=== PATIENT | female | born 1945 | race Caucasian/White ===

== ENCOUNTER → 2023-12-31 12:56 | Outpatient (REF) | payer OTHER, SELFPAY | LOC: RAD 12:56 | PROVIDERS: ATTENDING PHYSICIAN Family Medicine | DX: R41.3 Other amnesia (principal) | CPT/HCPCS: 70450 ==

== ENCOUNTER 2024-10-28 17:19 | Emergency (ER) | payer OTHER, SELFPAY ==
[2024-10-28 17:27] VITALS: BP 133/53
[2024-10-28 18:01] LABS: % Basophils 0.3 % (0-2); % Immature Granulocytes 0.5 % (0-0.5); % Lymphocytes 16.2 % (20.5-51.1); % Monocytes 12.4 % (1.7-9.3); % Neutrophils 70.6 % (42.2-75.2); Absolute Lymphocytes 0.6 10^3/uL (1.2-3.4); Absolute Monocytes 0.5 10^3/uL (0.1-0.6); Absolute Neutrophils 2.8 10^3/uL (1.4-6.5); Hematocrit 36.2 % (37.0-47.0); Hemoglobin 11.9 g/dL (12.0-16.0); Mean Corp Hgb Conc. 32.9 g/dL (33.0-37.0); Mean Corpuscular Hgb 28.2 pg (27.0-31.0); Mean Corpuscular Volume 85.8 fL (81.0-99.0); Mean Platelet Volume 9.1 fL (7.4-10.4); Nucleated Red Blood Cells % 0 %; Platelet Count 194 10^3/uL (130-400); Red Blood Cell Count 4.22 10^6/uL (4.20-5.40); Red Cell Dist. Width 12.3 % (11.5-14.5)
[2024-10-28 18:19] LABS: ALT (SGPT) 26 U/L (0-35); AST (SGOT) 37 U/L (14-36); Albumin 4.6 g/dl (3.5-5.0); Alkaline Phosphatase 73 U/L (38-126); Blood Urea Nitrogen 20 mg/dl (7-17); Carbon Dioxide 30 mmol/L (22-30); Glucose 95 mg/dl (70-99); Lipase 140 U/L (23-300); Total Bilirubin 0.4 mg/dl (0.2-1.3); Total Protein 7.4 g/dl (6.3-8.2); eGFR > 60.00
[2024-10-28 18:48] LABS: Chloride 98 mmol/L (98-107); Potassium 4.2 mmol/L (3.5-5.1); Sodium 137 mmol/L (135-145)
[2024-10-28 19:57] VITALS: BMI 18.6
--- NOTE | 2024-10-28 19:57 | ED.GENMED ---
History of Present Illness
General
Chief Complaint: Abdominal Pain
Source: patient
Exam Limitations: none
Time Seen by Provider: 10/28/24 19:18
Nursing documentation reviewed up to this point in time: agreed with
History of Present Illness
History of Present Illness:
79-year-old female with a past medical history as noted presents to the ER for evaluation of abdominal pain. Patient reports symptoms started yesterday evening and they have been constant since that time. She reports pain is located in the lower
abdomen does not radiate. Somewhat worse when she moves around, no relieving factors noted. She denies any associated nausea or vomiting. She does have some mild constipation but denies any diarrhea. She denies any dysuria, hematuria, change in
urinary frequency. She denies any fevers or chills. She denies any other complaints. She does have prior surgical history of partial bowel resection and lysis of adhesions after a bowel obstruction but this was many years ago.
Past History
Past History
ED Past Medical History: Cancer and Other (IBS, breast cancer)
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
Review of Systems
Review of Systems
All Other Systems: ROS reviewed and negative except as documented in HPI and ROS
Constitutional: Denies fever
Respiratory: Denies trouble breathing
Cardiac: Denies chest pain
ABD/GI: Reports abdominal pain and constipated; Denies nausea, vomiting or diarrhea
: Denies dysuria, frequency or flank pain
Musculoskeletal: Denies neck pain or back pain
Neurological: Denies dizzy or headache
Phy Exam
Physical Exam
Physical Exam:
General: Awake, alert, oriented x3; no acute distress
Head: Normocephalic, atraumatic
Eyes: Conjunctiva normal, sclera anicteric
Throat: Airway intact, handling secretions
Neck: Trachea midline, supple without meningismus
Lungs: Clear to auscultation bilaterally, no wheezing, rales, rhonchi
Heart: Regular rate and rhythm, no murmurs, gallops, or rubs
Abd: Soft, non distended, mildly tender across the lower abdomen somewhat worse on the right
Back: No CVA tenderness
Neuro: No gross deficit
Skin: no rash
Extremities: Warm and well-perfused
Scores
Heart Failure Risk
Heart Failure Risk Score: Not Applicable
Heart Score for Chest Pain Patients
STEMI patient?: Not applicable
Withdrawal Assessment of Alcohol
Withdrawal Assessment Completed?: Not applicable
Course
Orders/Labs/Results
Orders:
Orders
10/28/24 17:47
Complete Blood Count/With Diff Urgent
Comprehensive Metabolic Panel Urgent
Lactic Acid Urgent
Lipase Urgent
10/28/24 19:22
CT Abd/pelvis W Iv Cont Urgent
Comment:
Reason For Exam: lower abd pain and tenderness
10/28/24 19:57
Urinalysis Reflex To Culture Urgent
Date Specimen was Collected: 10/28/24
Time Specimen was Collected: 19:56
Urine Microscopic Reflex Cult Urgent
Urine Culture Urgent
LUIS F Source: U
Specimen Description:
Date Specimen was Collected: 10/28/24
Time Specimen was Collected: 19:56
10/28/24 20:02
Ketorolac [Toradol] 15 mg IV NOW STA
10/28/24 22:04
Mag Hydrox/Al Hydrox/Simeth [Maalox] 30 ml Phenobarb/Hyoscy/Atropine/Scop [] 10 ml Viscous Lidocaine 2% [Xylocaine Viscous Cup] 10 ml PO NOW
Pantoprazole [Protonix IV] 40 mg IV NOW STA
10/28/24 22:10
CefTRIAXone [Rocephin] 1,000 mg IV NOW STA
10/28/24 22:46
Mag Hydrox/Al Hydrox/Simeth [Maalox] 30 ml .ROUTE .STK-MED ONE
Phenobarb/Hyoscy/Atropine/Scop [] 10 ml .ROUTE .STK-MED ONE
Viscous Lidocaine 2% [Xylocaine Viscous Cup] 15 ml .ROUTE .STK-MED ONE
Abnormal Lab Results
10/28/24 10/28/24
17:47 19:57
WBC 4.0 L 10^3/uL
(4.8-10.8)
Hgb 11.9 L g/dL
(12.0-16.0)
Hct 36.2 L %
(37.0-47.0)
MCHC 32.9 L g/dL
(33.0-37.0)
Absolute Lymphs (auto) 0.6 L 10^3/uL
(1.2-3.4)
Lymphocytes % 16.2 L %
(20.5-51.1)
Monocytes % 12.4 H %
(1.7-9.3)
BUN 20 H mg/dl
(7-17)
AST 37 H U/L
(14-36)
Urine Ketones 3+ A
(Negative)
Leukocyte Esterase Rfl 2+ A
(Negative)
Urine Bacteria (Reflex) Few A
(Negative)
Urine Albumin (Reflex) 1+ A
(Neg - Trace)
10/28/24 17:47
10/28/24 17:47
Vital Signs
Initial and Last Documented VS:
Initial Vital Signs
Temp Pulse Resp BP Pulse Ox
36.8 C 76 16 133/53 98
10/28/24 17:27 10/28/24 17:27 10/28/24 17:27 10/28/24 17:27 10/28/24 17:27
Last Documented Vital Signs
Temp Pulse Resp BP Pulse Ox
37.2 C 56 16 123/64 96
10/28/24 20:09 10/28/24 22:54 10/28/24 22:54 10/28/24 22:54 10/28/24 22:54
MDM/Problems Addressed
Differential Diagnosis Includes:
Diverticulitis, appendicitis, bowel obstruction, UTI, nephrolithiasis, constipation
MDM/Problems Addressed:
79-year-old female presents for evaluation of lower abdominal pain started last night and has been constant since then. Vitals and exam as above. She had labs in triage including CBC which showed marginal leukopenia, marginal anemia. CMP no
clinically significant abnormalities. Lipase normal. Will add urinalysis. Check CT abdomen pelvis. Treat symptoms. Reassess after the above.
CT abdomen pelvis shows some gastric wall thickening possible gastritis; no evidence of intestinal obstruction. No other acute pathology to account for symptoms. Patient did feel some improvement in her symptoms after Toradol. She complains
mostly of lower abdominal pain which goes somewhat against gastritis as primary cause of her symptoms�can trial PPI and green grabber and assess response. Urinalysis appears contaminated but no significant amount of pyuria somewhat equivocal for UTI
but given location of pain certainly this could account for symptoms; not unreasonable to cover for UTI as well.
Patient feeling better, patient has been requesting discharge I think this is a reasonable plan. Follow-up with PCP as an outpatient. Spoke about return precautions all questions answered.
Chronic conditions affecting care:
Prior abdominal surgeries
*Radiology
Radiology exam reviewed: radiology read reviewed
*Pulse Oximetry
Patient hypoxic: no
*Critical Care Note
Total Time (30-74mins, 75-104mins- exclusive of procedures): Not Applicable
Data Reviewed
Source: patient, records and spouse
ED Attending Note
-
Portions of this chart may have been created with voice recognition software.� Occasional wrong word or��sound alike� substitutions may have occurred due to the inherent limitations of voice recognition software.
Discharge Plan
Departure
Patient Disposition: Home (Routine Discharge)
Date of Disposition: 10/28/24
Time of Disposition: 23:02
Patient with high blood pressure during this ER visit?: No
Discharge Problem:
Abdominal pain, UTI (urinary tract infection), Gastritis
Instructions: Urinary tract infections in adults, [place] diet, Abdominal Pain
Prescriptions:
New
pantoprazole 40 mg tablet,delayed release (DR/EC)
40 mg PO DAILY Qty: 14 0RF
cefdinir 300 mg capsule
300 mg PO BID Qty: 14 0RF
No Action
cyclosporine [Restasis] 10 DROPS dropperette
1 drp BOTH EYES BID
cholecalciferol (vitamin D3) 1,000 UNITS tablet
1,000 units PO HS
cetirizine 10 MG tablet
10 mg PO DAILYPRN PRN (Reason: allergies)
coenzyme L39-niqszit E 1 CAP capsule
1 cap PO HS
omega 1-tqf-qrh-fish oil [Fish Oil] 1 EACH capsule
1 ea PO HS
hydrocodone-acetaminophen 1 TABLET tablet
1 - 2 tab PO Q4HPRN PRN (Reason: moderate to severe pain) Qty: 20 0RF
Referrals:
Nory Driver MD [Family Provider] - Follow up in 5-7 days
Activity Restrictions/Additional Instructions:
Thank you for visiting the Emergency Department at [facility].
1. Please schedule a follow up appointment as directed. Call first thing tomorrow morning to make an appointment.
2. If indicated, please take your medications as instructed and indicated on discharge paperwork.
3. If any of your symptoms do not improve, or persist, or become more severe within 6-12 hours, please return to the emergency department for further care.
4. Please return to the emergency department if you develop a headache, neck pain/stiffness, fever greater than 100.4F, chest pain, shortness of breath, persistent nausea, vomiting, slurred speech, difficulty walking, numbness/tingling, weakness,
signs of infection or any other symptoms that are worrisome to you.
Please call [phone] if you have any questions.
Interventions
Interventions:
*Risk Screen - Suicide Last Done: 10/28/24 17:27
*General Assessment Last Done: 10/28/24 17:27
*Neglect/Abuse Screening Last Done: 10/28/24 17:27
FY-Vvarlg-Aqfkebkxhs Assessment Last Done: 10/28/24 20:12
Discharge Date and Time
Print Language: EQUATORIAL GUINEAN
[2024-10-28 20:09] VITALS: BP 142/59
[2024-10-28 20:27] LABS: Urine Albumin 1+ (Neg - Trace); Urine Bilirubin Negative (Negative); Urine Character Slightly Cloudy (Clear); Urine Color Yellow; Urine Glucose Negative (Negative); Urine Ketone 3+ (Negative); Urine Leukocyte 2+ (Negative); Urine Nitrite Negative (Negative); Urine Occult Blood Negative (Negative); Urine Urobilinogen Negative (Neg - 1+)
[2024-10-28 21:04] LABS: Urine Mucus Few; Urine Squamous Cell 16-20 /LPF (Few)
[2024-10-28 21:05] LABS: Urine Red Blood Cell 0-2 /HPF (0-2)
[2024-10-28 21:06] LABS: Urine Bacteria Few (Negative)
[2024-10-28] MEDS: TORADOL 15 MG IV (21:08)
[2024-10-28] MEDS: PROTONIX IV 40 MG IV (22:49)
[2024-10-28] MEDS: MAALOX 50 PO (22:49)
[2024-10-28] MEDS: ROCEPHIN 1000 MG IV (22:50)
[2024-10-28 22:54] VITALS: BP 123/64
== END 2024-10-28 23:23 | disposition home or self-care (01) ==
LOC: EMR 17:19
PROVIDERS: Student in an Organized Health Care Education/Training Program; EMERGENCY PHYSICIAN Emergency Medicine; FAMILY PHYSICIAN Family Medicine
DX: N39.0 Urinary tract infection, site not specified (principal); K29.70 Gastritis, unspecified, without bleeding; R10.9 Unspecified abdominal pain
CPT/HCPCS: 99285; 96374; 96375 ×2; 74177; 80053; 81003; 81015; 83605; 83690; 85025; 87086; Q9967

== ENCOUNTER 2024-10-29 16:09 | Emergency (ER) | payer OTHER, SELFPAY ==
[2024-10-29 16:21] VITALS: BP 135/61
--- NOTE | 2024-10-29 18:42 | ED.GENMED ---
History of Present Illness
General
Chief Complaint: Abdominal Pain
Time Seen by Provider: 10/29/24 18:28
History of Present Illness
History of Present Illness:
Patient is a 79-year-old woman presenting to the emergency department with nausea vomiting. She states that she was seen here yesterday for abdominal pain. She is feeling much better regarding the abdominal pain. She states that today she woke up
extremely tired has been nauseous with limited p.o. She did vomit this morning. She denies any abdominal pain. She called her PCP who told her to come to the emergency department for further evaluation. She does state that she is also been
having some URI symptoms as well as multiple sick contacts. No cough. No chest pain. No shortness of breath. She denies any dysuria or urinary frequency. She has been able to tolerate her antibiotics as she was prescribed yesterday.
Past History
Past History
ED Past Medical History: Cancer and Other (IBS, breast cancer)
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
Phy Exam
Physical Exam
Physical Exam:
GENERAL: in no acute distress
HEENT: normocephalic, extraocular movements intact, dry oral mucosa
NECK: normal inspection
RESPIRATORY: no respiratory distress, clear to auscultation bilaterally
CARDIOVASCULAR: regular rate and rhythm
ABDOMEN/: soft, non-distended, non-tender to palpation, no rebound or guarding
EXTREMITIES: non-tender, no edema/swelling
NEUROLOGIC: awake and alert, moves all extremities
SKIN: warm
Course
Orders/Labs/Results
Orders:
Orders
10/29/24 18:41
Ondansetron Orally Disint [Zofran Odt (Orally Disintegrating)] 4 mg PO NOW STA
10/29/24 18:48
Electrocardiogram (*1) Urgent
Reason for Study: Fatigue / Weakness
EKG- Treatment ONCE
10/29/24 19:17
COVID-19 Antigen Urgent
Source: Nasal Swab
Complete Blood Count/With Diff Urgent
Comprehensive Metabolic Panel Urgent
Influenza A+B Rapid Molecular Urgent
LUIS F Source: Nasal Swab
Specimen Description:
Abnormal Lab Results
10/29/24
19:17
Absolute Lymphs (auto) 0.8 L 10^3/uL
(1.2-3.4)
Lymphocytes % 17.3 L %
(20.5-51.1)
Monocytes % 12.3 H %
(1.7-9.3)
BUN 31 H mg/dl
(7-17)
AST 37 H U/L
(14-36)
10/29/24 19:17
10/29/24 19:17
Vital Signs
Initial and Last Documented VS:
Initial Vital Signs
Temp Pulse Resp BP Pulse Ox
98.1 F 73 16 135/61 98
10/29/24 16:21 10/29/24 16:21 10/29/24 16:21 10/29/24 16:21 10/29/24 16:21
Last Documented Vital Signs
Temp Pulse Resp BP Pulse Ox
98.1 F 73 16 135/61 98
10/29/24 16:21 10/29/24 16:21 10/29/24 16:21 10/29/24 16:21 10/29/24 16:21
MDM/Problems Addressed
Differential Diagnosis Includes:
79-year-old woman presenting to the emergency department with 1 day of nausea and fatigue. Vitals are unremarkable and exam does show dry oral mucosa. Concern for viral illness especially given the URI symptoms and sick contacts. Given her
abdominal exam is benign less likely to be an obstruction or volvulus. Will check blood work and COVID flu swab. Will check EKG given the nausea. After shared decision making and given her benign abdomen we will hold off on CT scan. Will give
Zofran and trial p.o.
*Critical Care Note
Total Time (30-74mins, 75-104mins- exclusive of procedures): Not Applicable
Update Note
Update Note:
On reevaluation patient resting comfortably. We did trial p.o. which she was successful with. She is flu positive. Blood work does show slightly elevated BUN. Patient discharged with short prescription of Zofran. Return precautions given
ED Attending Note
-
Portions of this chart may have been created with voice recognition software.� Occasional wrong word or��sound alike� substitutions may have occurred due to the inherent limitations of voice recognition software.
Discharge Plan
Departure
Patient Disposition: Home (Routine Discharge)
Date of Disposition: 10/29/24
Time of Disposition: 20:53
Patient with high blood pressure during this ER visit?: No
Discharge Problem:
Influenza A
Instructions: Flu in adults - ED discharge instructions
Prescriptions:
New
ondansetron 4 mg tablet,disintegrating
4 mg PO Q8H PRN (Reason: nausea and vomiting) Qty: 7 0RF
No Action
cyclosporine [Restasis] 10 DROPS dropperette
1 drp BOTH EYES BID
cholecalciferol (vitamin D3) 1,000 UNITS tablet
1,000 units PO HS
cetirizine 10 MG tablet
10 mg PO DAILYPRN PRN (Reason: allergies)
coenzyme S68-txnaerr E 1 CAP capsule
1 cap PO HS
omega 7-jga-vze-fish oil [Fish Oil] 1 EACH capsule
1 ea PO HS
hydrocodone-acetaminophen 1 TABLET tablet
1 - 2 tab PO Q4HPRN PRN (Reason: moderate to severe pain) Qty: 20 0RF
pantoprazole 40 mg tablet,delayed release (DR/EC)
40 mg PO DAILY Qty: 14 0RF
cefdinir 300 mg capsule
300 mg PO BID Qty: 14 0RF
Referrals:
RITE,SILVINO [Other]
Interventions
Interventions:
*Risk Screen - Suicide Last Done: 10/29/24 16:21
*Neglect/Abuse Screening Last Done: 10/29/24 16:21
Discharge Date and Time
Print Language: UPPER SORBIAN
[2024-10-29] MEDS: ZOFRAN ODT (ORALLY DISINTEGRATING) 4 MG PO (19:08)
[2024-10-29 19:30] LABS: % Basophils 0.2 % (0-2); % Immature Granulocytes 0.4 % (0-0.5); % Lymphocytes 17.3 % (20.5-51.1); % Monocytes 12.3 % (1.7-9.3); % Neutrophils 69.8 % (42.2-75.2); Absolute Lymphocytes 0.8 10^3/uL (1.2-3.4); Absolute Monocytes 0.6 10^3/uL (0.1-0.6); Absolute Neutrophils 3.3 10^3/uL (1.4-6.5); Hematocrit 37.1 % (37.0-47.0); Hemoglobin 12.3 g/dL (12.0-16.0); Mean Corp Hgb Conc. 33.2 g/dL (33.0-37.0); Mean Corpuscular Hgb 28.1 pg (27.0-31.0); Mean Corpuscular Volume 84.9 fL (81.0-99.0); Mean Platelet Volume 9.1 fL (7.4-10.4); Nucleated Red Blood Cells % 0 %; Platelet Count 216 10^3/uL (130-400); Red Blood Cell Count 4.37 10^6/uL (4.20-5.40); Red Cell Dist. Width 12.3 % (11.5-14.5); White Blood Cell Count 4.8 10^3/uL (4.8-10.8)
[2024-10-29 19:37] LABS: COVID-19 Antigen Negative (Negative)
[2024-10-29 19:41] LABS: ALT (SGPT) 26 U/L (0-35); AST (SGOT) 37 U/L (14-36); Albumin 4.7 g/dl (3.5-5.0); Alkaline Phosphatase 82 U/L (38-126); Blood Urea Nitrogen 31 mg/dl (7-17); Calcium 9.3 mg/dl (8.4-10.2); Carbon Dioxide 29 mmol/L (22-30); Chloride 98 mmol/L (98-107); Glucose 96 mg/dl (70-99); Potassium 4.5 mmol/L (3.5-5.1); Sodium 141 mmol/L (135-145); Total Bilirubin 0.8 mg/dl (0.2-1.3); Total Protein 7.1 g/dl (6.3-8.2); eGFR > 60.00
[2024-10-29 21:23] VITALS: BMI 18.8
== END 2024-10-29 21:34 | disposition home or self-care (01) ==
LOC: EMR 16:09
PROVIDERS: EMERGENCY PHYSICIAN Student in an Organized Health Care Education/Training Program
DX: J10.1 Influenza due to other identified influenza virus with other respiratory manifestations (principal); K58.9 Irritable bowel syndrome, unspecified; Z85.3 Personal history of malignant neoplasm of breast; Z90.49 Acquired absence of other specified parts of digestive tract
CPT/HCPCS: 99283; 80053; 85025; 87502; 87811; 93005

== ENCOUNTER 2024-11-07 22:29 | Inpatient (IN) | payer OTHER, SELFPAY ==
[2024-11-07 15:46] VITALS: BP 130/70
[2024-11-07 16:35] LABS: % Basophils 0.4 % (0-2); % Eosinophils 0.8 % (0-6); % Immature Granulocytes 0.5 % (0-0.5); % Lymphocytes 8.6 % (20.5-51.1); % Monocytes 9.7 % (1.7-9.3); Absolute Basophils 0.1 10^3/uL (0-0.2); Absolute Eosinophils 0.1 10^3/uL (0-0.7); Absolute Immature Granulocytes 0.1 10^3/uL (0-0.05); Absolute Lymphocytes 1.1 10^3/uL (1.2-3.4); Absolute Monocytes 1.2 10^3/uL (0.1-0.6); Absolute Neutrophils 9.8 10^3/uL (1.4-6.5); Hemoglobin 12.7 g/dL (12.0-16.0); Mean Corp Hgb Conc. 32.6 g/dL (33.0-37.0); Mean Corpuscular Volume 85.9 fL (81.0-99.0); Mean Platelet Volume 8.7 fL (7.4-10.4); Nucleated Red Blood Cells % 0 %; Platelet Count 366 10^3/uL (130-400); Red Blood Cell Count 4.54 10^6/uL (4.20-5.40); Red Cell Dist. Width 12.4 % (11.5-14.5); White Blood Cell Count 12.2 10^3/uL (4.8-10.8)
[2024-11-07 16:46] LABS: Lactic Acid 0.9 mmol/L (0.7-2.0)
[2024-11-07 16:47] LABS: ALT (SGPT) 124 U/L (0-35); AST (SGOT) 86 U/L (14-36); Albumin 3.9 g/dl (3.5-5.0); Alkaline Phosphatase 87 U/L (38-126); Blood Urea Nitrogen 21 mg/dl (7-17); Calcium 9.8 mg/dl (8.4-10.2); Carbon Dioxide 37 mmol/L (22-30); Chloride 94 mmol/L (98-107); Glucose 112 mg/dl (70-99); Lipase 584 U/L (23-300); Potassium 3.6 mmol/L (3.5-5.1); Sodium 137 mmol/L (135-145); Total Bilirubin 0.7 mg/dl (0.2-1.3); Total Protein 6.5 g/dl (6.3-8.2); eGFR > 60.00
--- NOTE | 2024-11-07 17:49 | ED.GENMED ---
History of Present Illness
General
Chief Complaint: Abdominal Symptoms
Time Seen by Provider: 11/07/24 17:32
History of Present Illness
History of Present Illness:
79-year-old female history of constipation, IBS, bowel obstruction presenting with diffuse abdominal pain and abdominal distention worsening over the past few days. Patient denies nausea or vomiting but states that she is unable to pass gas
starting today. Daughter at bedside states that patient's took patient to her doctor who performed x-ray that showed 'blockage'. Daughter states that patient was diagnosed with influenza 9 days ago, has poor p.o. intake and has been
sleeping a lot ever since. Otherwise no fever or urinary symptoms. Patient states she does not remember her last bowel movement
Past History
Past History
ED Past Medical History: Cancer and Other (IBS, breast cancer)
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
Phy Exam
Physical Exam
Physical Exam:
General: Alert, no acute distress
Head: NCAT
Eyes: clear conjunctiva
Neck: supple
Cardiac: regular rate and rhythm, no murmur
Lungs: clear to auscultation bilaterally. No wheezes, rales, or rhonchi. Speaking full unlabored sentences. No respiratory distress.
Abdomen: soft, distended, diffusely tender. No rebound or guarding.
MSK: no lower extremity edema bilaterally. No deformity
Skin: warm, dry
Course
Orders/Labs/Results
Orders:
Orders
11/07/24 16:23
Complete Blood Count/With Diff Urgent
Comprehensive Metabolic Panel Urgent
Lactic Acid Urgent
Lipase Urgent
11/07/24 17:47
CT Abd/pel W Iv And Oral Contr Urgent
Comment:
Reason For Exam: distended, diffuse tenderness, hx obstruction
Iohexol [Omnipaque] See Protocol PO NOW STA
11/07/24 17:49
0.9% Sodium Chloride 500 ml [Nss] 500 ml IV BOLUS
11/07/24 21:59
Admit/Transfer Patient As Directed
Co-Sign Provider:
Level of Care: Inpatient admission
Assign to:: Medical/Surgical
Physician / Group: hospitalist
Diagnosis: small bowel obstruction
Reason for Hospitalization: small bowel obstruction
Expected length of stay greater than two midnights?: Yes
ELOS- Estimated Length of Stay in days: 2
I certify the patient meets the requirements for IP care: Yes
PRN Pain Medication Management As Directed
May give lesser potent ordered pain med per pt: Yes
preference::
Protocol:: Medication orders for pain may be administered in a
manner that supports deferring to patient preference
when the pt is:
- Requesting an ordered lesser potent pain medication.
Least to most potent pain medications are defined
as: acetaminophen < NSAID < tramadol < opioids
(morphine, oxycodone, hydromorphone).
- Requesting a lesser dose of the same medication IF
ORDERED.
- Requesting a less intrusive route of administration
if both routes are prescribed by the provider (PO <
IV).
11/07/24 22:00
Code Status As Directed
Resuscitation Status: Full Code
11/07/24 23:00
Flush (0.9% Sodium Chloride) [Flush (Nss)] See Dose Instructions IV PER PROTOCOL
11/07/24 23:30
Acetaminophen [Tylenol/Feverall] 650 mg RECTAL Q4HPRN PRN
Dextrose 5%/Lactringers 1000ML [D5lr] 1,000 ml IV 80 mls/hr
HYDROmorphone [Dilaudid] 0.5 mg IV Q4HPRN PRN
Ondansetron Injectable [Zofran] 4 mg IV Q6HPRN PRN
11/07/24 23:30
Urinalysis Reflex To Culture Routine
Activity As Directed
Activity Level: With Assistance
Vital Signs As Directed
Frequency: Per unit guidelines
Pulse Ox/spot Check [RESP] Routine
Quantity: 1
DX Deep Vein Thrombosis Video Routine
11/08/24 Breakfast
NPO
Allow oral meds: Yes
Allow clear liquids: Sips of Clears
Basic Metabolic Panel IN AM
Complete Blood Count/No Diff IN AM
11/08/24 18:00
Enoxaparin Sodium [Lovenox] 40 mg SC QPM
Abnormal Lab Results
11/07/24
16:23
WBC 12.2 H 10^3/uL
(4.8-10.8)
MCHC 32.6 L g/dL
(33.0-37.0)
Abs Immat Gran (auto) 0.1 H 10^3/uL
(0-0.05)
Absolute Neuts (auto) 9.8 H 10^3/uL
(1.4-6.5)
Absolute Lymphs (auto) 1.1 L 10^3/uL
(1.2-3.4)
Absolute Monos (auto) 1.2 H 10^3/uL
(0.1-0.6)
Neutrophils % 80.0 H %
(42.2-75.2)
Lymphocytes % 8.6 L %
(20.5-51.1)
Monocytes % 9.7 H %
(1.7-9.3)
Chloride 94 L mmol/L
(98-107)
Carbon Dioxide 37 H mmol/L
(22-30)
BUN 21 H mg/dl
(7-17)
Glucose 112 H mg/dl
(70-99)
AST 86 H U/L
(14-36)
ALT 124 H U/L
(0-35)
Lipase 584 H U/L
(23-300)
11/07/24 16:23
11/07/24 16:23
Vital Signs
Initial and Last Documented VS:
Initial Vital Signs
Temp Pulse Resp BP Pulse Ox
98.1 F 101 20 130/70 96
11/07/24 15:46 11/07/24 15:46 11/07/24 15:46 11/07/24 15:46 11/07/24 15:46
Last Documented Vital Signs
Temp Pulse Resp BP Pulse Ox
98.2 F 87 16 147/75 95
11/07/24 23:33 11/07/24 23:33 11/07/24 23:33 11/07/24 23:33 11/07/24 23:33
MDM/Problems Addressed
Differential Diagnosis Includes:
Bowel obstruction, constipation, UTI, VAIBHAV, electrolyte abnormality
MDM/Problems Addressed:
CT abdomen/pelvis reviewed, concerning for SBO with transition suggested in the central pelvis. Discussed with general surgery who will consult. Ordered NG tube but patient did not tolerate. Given no vomiting and pain controlled, will not
reattempt. Discussed with hospitalist for admission
*Critical Care Note
Total Time (30-74mins, 75-104mins- exclusive of procedures): Not Applicable
ED Attending Note
-
Portions of this chart may have been created with voice recognition software.� Occasional wrong word or��sound alike� substitutions may have occurred due to the inherent limitations of voice recognition software.
Discharge Plan
Departure
Patient Disposition: Admit
Date of Disposition: 11/07/24
Time of Disposition: 21:40
Presentation/result/management discussed w/ accepting MD/DO: Hospitalist
Discharge Problem:
SBO (small bowel obstruction)
Interventions
Interventions:
*Risk Screen - Suicide Last Done: 11/07/24 23:57
*General Assessment Last Done: 11/07/24 15:46
*Neglect/Abuse Screening Last Done: 11/07/24 23:57
ED- Fall Risk Assessment Last Done: 11/07/24 19:38
*ED COVID-19 Vaccine History Last Done: 11/07/24 23:57
*Nursing Disposition Last Done: 11/07/24 23:57
HO-Gevouk-Mmwliepmah Assessment Last Done: 11/07/24 19:38
[2024-11-07] MEDS: OMNIPAQUE 50 ML PO (18:20)
[2024-11-07] MEDS: NSS 500 IV (18:21)
--- NOTE | 2024-11-07 21:51 | HPS.HSE ---
Family Physician
-
Family Physician: Nory Driver
Chief Complaint
-
Abdominal pain
History of Present Illness
This is a 79-year-old female with past medical history significant for cecal volvulus status post bowel resection, IBS, constipation, history of breast cancer status post surgery and radiation, presents to the emergency department with worsening
abdominal pain.
She reports a diffuse abdominal pain and abdominal distention worsening over the last few days. She denies nausea or vomiting. She reports that since this a.m. she is unable to pass gas. She was seen by PMD today and perform an x-ray which showed
'a blockage'. She had been diagnosed with influenza 9 days ago and had poor p.o. intake, increased somnolence since then. Denies fevers or chills. Denies any urinary symptoms. Unable to determine when her last bowel movement was.
She was also treated for about 4 days with cefdinir for presumed urinary tract infection.
Patient has been having memory issues for several weeks now. She does follow with neurology. She was started on memantine yesterday and only took one tablet. Minimal po over the last week. She remembers having a BM yesterday but passing no gas
today.
In the emergency department she was afebrile, blood pressure was 130/70 pulse 98 respiratory rate 20. He was satting 96% on room air. White count was 12 CBC otherwise unremarkable. Electrolytes BUN/creatinine were all within normal range. He had
elevated lipase to 584, mild elevation in ALT and AST.
CT scan of the abdomen and pelvis showed small bowel obstruction with transition suggested in the central pelvis. No evidence of bowel wall thickening or pneumatosis. Minimal ascites noted. No focal collection or abscess. The liver spleen and
kidneys were unremarkable. The gallbladder, bile duct were also unremarkable.
Medical History
Past Medical History
Past Medical History: Reports Dementia and Other (Cecal volvulus)
Additional Past Medical History:
Irritable bowel syndrome
Past Surgical History: Reports Bowel Resection
Social History
Tobacco: Non-smoker
Alcohol: None
Drug: None
Living: With Family
Employment: Retired
Family History
Family History: Not pertinent
Allergies / Home Medications
Allergies reflects when Allergies were last updated in [employer].
Home Medications with original date entered in [employer]
Allergy/Medication List:
Allergies
Allergy/AdvReac Type Severity Reaction Status Date / Time
No Known Allergies Allergy Verified 11/07/24 15:46
Home Medications
cefdinir 300 mg capsule 300 mg PO BID #14 caps 10/28/24
ibuprofen 200 mg tablet (Advil) 200 mg PO Q6HPRN PRN mild pain 11/07/24
memantine 5 mg tablet 5 mg PO DAILY 11/07/24
risedronate 150 mg tablet 150 mg PO QMONTH 11/07/24
Review of Systems
-
History Source: Family
Constitutional: Reports Fatigue and Sleep Disturbance
EENT: Reports No Symptoms
Respiratory: Reports No Symptoms
Cardiac: Reports No Symptoms
Abdomen/GI: Reports Abdominal Pain and Constipated
: Reports No Symptoms
Musculoskeletal: Reports No Symptoms
Skin: Reports No Symptoms
Neurological: Reports No Symptoms
Endocrine: Reports No Symptoms
Hematologic/Lymphatic: Reports No Symptoms
Psych: Reports No Symptoms
Physical Exam
Vital Signs
Vital Signs
Temp Pulse Resp BP Pulse Ox
98.1 F 90 21 130/70 96
11/07/24 15:46 11/07/24 19:40 11/07/24 19:40 11/07/24 15:46 11/07/24 15:46
Physical Exam
General: Well Developed, No Apparent Distress and Conversant
HEENT: NormoCephalic, Anicteric, Moist mucous membranes and PERRLA
Respiratory: Clear
Cardiac: S1/S2 and Regular Rhythm
Breast: Deferred by me
GI: Soft
Genito-urinary: Deferred by me
Musculoskeletal: No Clubbing, No Cyanosis and No Edema
Skin: Warm
Neuro: Alert, Oriented (oriented to person, not to place or time.) and Nonfocal/grossly intact
Hematologic/Lymphatic: No Lymphadenopathy
Psych: Calm
Laboratory Results
-
11/07/24 16:23
11/07/24 16:23
Laboratory Results
Lactic Acid 0.9 mmol/L (0.7-2.0) 11/07/24 16:23
Total Bilirubin 0.7 mg/dl (0.2-1.3) 11/07/24 16:23
AST 86 U/L (14-36) H 11/07/24 16:23
ALT 124 U/L (0-35) H 11/07/24 16:23
Alkaline Phosphatase 87 U/L (38-126) 11/07/24 16:23
Lipase 584 U/L (23-300) H 11/07/24 16:23
Data Reviewed
-
CT Scan: Report Reviewed by me
Lab Data: Labs Reviewed by me
Old Records: Reviewed
Impression/Plan
-
IMPRESSION:
Patient with history of cecal volvulus status post resection, exploratory laparotomy with lysis of adhesions of small bowel obstruction in 2019 presents to the emergency department with progressive abdominal pain and distention as well as
constipation. Found to have small bowel obstruction with a transition suggested in the central pelvis, small bowel distention up to 5 cm. There appears to be a transition in the central pelvis (image 56 series 201), raising the possibility of
adhesion. The distal small bowel is collapsed.
Further she seem to have developed progressive
PLAN:
1. SBO - Suspected secondary to adhesion
- admit to med/surg
- attempted ng tube in ED, failed. She had vomited about 1 L of bilous material before the attempt and now appears comfortable. Will hold off repeat attempt for comfort until am.
- antiemetics and pain control
- IV fluids for now
- serial examinations
- possibility of conservative management, consult to Gen surg
2. Altered mental statu s- Per spouse memory issues for week but more confusion over the last 2 weeks. Diagnosed with influenza and UTI. No tx for influenza. Cefdinir for UTI but course incomplete
- obtain u/a
- holding memantine for now
- fluid resuscitation
3. Pancreatitis - Elevated lipase with slight lft elevation. No obvious radioopaque stone or biliary dilation on CT. No h/o etoh
- trend lfts, if rising consider mrcp
- npo above, iv fluids and pain control
DVT PPX - lovenox sq
Code status - full code
[2024-11-07 23:33] VITALS: BP 147/75; BMI 19.4
[2024-11-08] MEDS: D5LR 1000 IV ×2 (00:21→13:39)
--- NOTE | 2024-11-08 00:53 | PTCARENOTE ---
Patient arrived to unit via stretcher around 2330 with dx of SBO. Patient ambulated to bed with assist of 1. Awake, alert and oriented x 1, self only. Bed alarm applied. Denies pain or discomfort. Oriented to unit. Call osei within reach.
[2024-11-08 06:44] LABS: Hematocrit 34.7 % (37.0-47.0); Hemoglobin 11.5 g/dL (12.0-16.0); Mean Corp Hgb Conc. 33.1 g/dL (33.0-37.0); Mean Corpuscular Hgb 28.1 pg (27.0-31.0); Mean Corpuscular Volume 84.8 fL (81.0-99.0); Platelet Count 348 10^3/uL (130-400); Red Blood Cell Count 4.09 10^6/uL (4.20-5.40); Red Cell Dist. Width 12.3 % (11.5-14.5); White Blood Cell Count 11.5 10^3/uL (4.8-10.8)
[2024-11-08 07:00] VITALS: BP 124/51
[2024-11-08 07:37] LABS: ALT (SGPT) 120 U/L (0-35); AST (SGOT) 74 U/L (14-36); Albumin 3.7 g/dl (3.5-5.0); Alkaline Phosphatase 87 U/L (38-126); Blood Urea Nitrogen 20 mg/dl (7-17); Calcium 9.7 mg/dl (8.4-10.2); Carbon Dioxide 37 mmol/L (22-30); Chloride 94 mmol/L (98-107); Direct Bilirubin 0.4 mg/dl (0.0-0.4); Estimated Creatinine Clearance 47 ml/min; Glucose 137 mg/dl (70-99); Lipase 504 U/L (23-300); Potassium 3.6 mmol/L (3.5-5.1); Sodium 138 mmol/L (135-145); Total Bilirubin 0.8 mg/dl (0.2-1.3); Total Protein 6.1 g/dl (6.3-8.2); eGFR > 60.00
[2024-11-08 10:18] LABS: Urine Albumin 2+ (Neg - Trace); Urine Bilirubin Negative (Negative); Urine Character Clear (Clear); Urine Glucose Negative (Negative); Urine Ketone 3+ (Negative); Urine Leukocyte 1+ (Negative); Urine Nitrite Negative (Negative); Urine Occult Blood Negative (Negative); Urine Specific Gravity 1.015 (<1.030); Urine Urobilinogen Negative (Neg - 1+)
[2024-11-08 10:19] LABS: Urine Color Yellow
[2024-11-08 10:37] LABS: Urine Calcium Oxalate Crystals Present; Urine Red Blood Cell 0-2 /HPF (0-2); Urine Squamous Cell 0-2 /LPF (Few); Urine White Cell 0-2 /HPF (0-5)
--- NOTE | 2024-11-08 11:57 | CM ---
CM reviewed chart, patient admitted for small bowel obstruction. Patient seen bedside with , daughter, and granddaughter. Patient resides in a multiple story home, one step to enter. Patient denies use of DME, VN, or SNF. Patient confirms PCP
Nory Driver, pharmacy [facility] in [address], confirms prescription coverage. CM will continue to follow for all discharge planning needs.
Plan; home with family, watch for possible VN needs.
--- NOTE | 2024-11-08 12:05 | W.PN.HOSP.TC ---
Today's Communication/Plan
-
Surgical evaluation pending
Assessment / Plan
Assessment / Plan
NAD
Scleral Anicteric
MMM
No JVD
CTABL
RRR, S1/S2
Soft, NT, distended, hypoactive bowel
Warm, Dry
Calm
Small bowel obstruction secondary to 2 suspected adhesions from previous cecal volvulus requiring resection
-Colorectal surgery consulted
-IV fluids
-Antiemetics
-Avoid narcotics
-If develops worsening distention abdominal pain nausea vomiting will likely require NG tube
Toxic metabolic encephalopathy recently diagnosed with flu not treated though UTI on cefdinir did not complete course but completed more than 3 days
-Holding memantine
-Fluid resuscitation
-Obtain UA with urine culture
Elevated lipase
-Likely related to bowel obstruction nausea vomiting
-Unlikely secondary to acute pancreatitis as CT abdomen pelvis does not demonstrate pancreatic inflammation and pain is not consistent with acute pancreatitis
Anticipated Discharge: > 48 hours
Subjective/Interval History
-
Date of Service: November 08, 2024
Seen and examined. No new complaints. No acute overnight events
Objective Data
-
Labs:
Laboratory Results
11/08/24
06:07
WBC 11.5 H
Hgb 11.5 L
Hct 34.7 L
Plt Count 348
Sodium 138
Potassium 3.6
Chloride 94 L
Carbon Dioxide 37 H
BUN 20 H
Creatinine 0.7
Glucose 137 H
Calcium 9.7
Total Bilirubin 0.8
AST 74 H
ALT 120 H
Alkaline Phosphatase 87
Vital Signs:
Vital Signs
Temp Pulse Resp BP Pulse Ox
98.7 F 68 16 124/51 95
11/08/24 07:00 11/08/24 07:00 11/08/24 07:00 11/08/24 07:00 11/08/24 07:00
I&O
11/07/24 11/08/24 11/09/24
06:59 06:59 06:59
Intake Total 480 / 480
Balance 480 / 480
[2024-11-08] MEDS: LIDOCAINE URO-JET 2% 1 SYRINGE TOPICAL (12:19)
[2024-11-08] MEDS: ZOFRAN 4 MG IV (12:20)
--- NOTE | 2024-11-08 12:32 | CON.GS ---
Addendum entered and electronically signed by Sandro Strange MD 11/08/24 13:47:
I saw and examined the patient independently.
The Pitching Coach's note was reviewed and I agree with the note, assessment and plan except where noted below.
Comment: 79-year-old female with a history of sigmoid volvulus status post right hemicolectomy and subsequent ex lap for small bowel obstruction in 2018 and 2019 respectively recent UTI presents with abdominal pain as well as nausea and nonbloody
but bilious emesis found to have a small bowel obstruction on CT.
Will attempt NG tube placement.
N.p.o., IV fluids, NG tube to low intermittent wall suction.
Pain control.
Will plan for a small bowel follow-through study Sunday if no return of bowel function by then.
General surgery will continue to follow.
Original Note:
Consultation
-
Date/Time Consultation Requested: 11/07/2024, 23:30
Date/Time Consultation Performed: 11/08/2024, 09:15
Requesting Provider: Misael Lo MD
Performing Provider: Sandro Strange MD
Reason for Consultation: SBO
Medical History
-
Chief Complaint: abdominal pain
History of Present Illness:
79-year-old female, with a past medical history of a sigmoid volvulus with small bowel obstruction status post right colectomy in 2018 and subsequent small bowel obstruction due to adhesions status post lysis of adhesions in [address] Akins,
presents to [facility] due to abdominal pain. The patient has dementia at baseline and most of this history is obtained from the patient's daughter who is at bedside. The patient had reportedly complained of abdominal pain and distention
over the past few days. She was seen by her primary care doctor and an outpatient x-ray that was performed showed obstruction. She was then advised to go immediately to the ER. Prior to all this, the patient had influenza about 2 weeks ago and a
subsequent UTI. Her daughter states that she has been sleeping about 17 hours a day since all this started. She has not been eating or drinking much. She did vomit yesterday after taking an the oral contrast for the CAT scan. She is not
currently nauseous and has had no vomiting since. The patient states that her abdominal pain is off and on. The family notes that she looks distended. She has not had any flatus or bowel movements since this started. On admission her WBC is
12.12 and is 11.5 today. She has remained afebrile. CT of the abdomen and pelvis showed a small bowel obstruction with transition suggested in the central pelvis. No evidence of bowel wall thickening or pneumatosis. Relatively minimal ascites.
No focal collection or abscess. Currently urine and blood cultures are pending. An NG tube was attempted yesterday but she was unable to tolerate it. Given these findings, we have been consulted for surgical opinion.
Past Medical History
Past Medical History: Cancer (breast) and Other (dementia, cecal volvulus, IBS)
Past Surgical History: Other (lumpectomy 2014, 10/01/17 Dr. Akins - ex lap/right colectomy due to sigmoid volvulus with small bowel obstruction, 04/19/2019- ex lap with lysis of adhesions for small bowel obstruction)
Social History
Tobacco: Non-Smoker
Alcohol: None
Personal:
Family History
Family History: Reviewed & Not Pertinent
Allergies / Home Medications
Allergy/AdvReac Type Severity Reaction Status Date / Time
No Known Allergies Allergy Verified 11/07/24 15:46
�Medication �Instructions �Recorded �Confirmed �Type
cefdinir 300 mg capsule 300 mg PO BID #14 caps 10/28/24 11/07/24 Rx
ibuprofen 200 mg tablet (Advil) 200 mg PO Q6HPRN PRN mild pain 11/07/24 11/07/24 History
memantine 5 mg tablet 5 mg PO DAILY 11/07/24 11/07/24 History
risedronate 150 mg tablet 150 mg PO QMONTH 11/07/24 11/07/24 History
Review of Systems
-
Unable to obtain full review of systems at this time due to: Dementia
History Source: Patient and Family
Constitutional: Fatigue
Abdomen/GI: Abdominal Pain and Anorexia
A 10 point review of systems was completed, and was negative except as per HPI.
Physical Exam
Vital Signs
Temp Pulse Resp BP Pulse Ox
98.7 F 68 16 124/51 95
11/08/24 07:00 11/08/24 07:00 11/08/24 07:00 11/08/24 07:00 11/08/24 07:00
11/07/24 11/08/24 11/09/24
06:59 06:59 06:59
Actual Weight 45.042 kg
Body Mass Index (BMI) 19.4
Lab Results
11/08/24 06:07
11/08/24 06:07
WBC 11.5 10^3/uL (4.8-10.8) H 11/08/24 06:07
Hgb 11.5 g/dL (12.0-16.0) L 11/08/24 06:07
Hct 34.7 % (37.0-47.0) L 11/08/24 06:07
Plt Count 348 10^3/uL (130-400) 11/08/24 06:07
Abs Immat Gran (auto) 0.1 10^3/uL (0-0.05) H 11/07/24 16:23
Neutrophils % 80.0 % (42.2-75.2) H 11/07/24 16:23
Physical Exam
General: Well Developed, Well Nourished and No Apparent Distress
GI: Non Tender, Distended and Other (Midline incision noted, well-healed)
Skin: Warm and Dry
Neuro: Awake and Alert
Data Reviewed
-
CT Scan: Image Personally Visualized and interpreted, Report Reviewed by me, Discussed with Patient and Discussed with Family
Labs: Labs Reviewed by me, Discussed with Physician, Discussed with Patient and Discussed with Family
Assessment / Plan
-
Assessment: 79-year-old female with a prior medical history of a sigmoid volvulus in 2018 with subsequent small bowel obstruction due to adhesion in 2019 and recent influenza and UTI, presents complaining of abdominal pain, lethargy, vomiting and
distention. CT shows a small bowel obstruction with transition point in the central pelvis.
Plan:
-Will attempt another NG tube insertion. Lidocaine spray ordered. NG tube to low intermittent suction.
-Maintain n.p.o. status
-Maintain IV fluids
-Pain control: Tylenol and Toradol as needed
-Antiemetics: Zofran as needed.
-On Lovenox for DVT prophylaxis
-Urine and blood cultures are pending
-No plan for surgery today, will decompress with NG tube and follow exam.
-Discussed plan with and daughter at bedside.
[2024-11-08 13:19] VITALS: BMI 19.4
[2024-11-08] MEDS: TORADOL 15 MG IV (13:37)
[2024-11-08] MEDS: LOVENOX 30 MG SC (18:30)
[2024-11-08 23:40] VITALS: BP 130/55
[2024-11-09] MEDS: D5LR 1000 IV ×2 (04:24→17:33)
[2024-11-09 07:00] VITALS: BP 120/66
[2024-11-09 09:50] LABS: Blood Urea Nitrogen 19 mg/dl (7-17); Calcium 9.5 mg/dl (8.4-10.2); Carbon Dioxide 40 mmol/L (22-30); Chloride 99 mmol/L (98-107); Estimated Creatinine Clearance 47 ml/min; Glucose 125 mg/dl (70-99); Hematocrit 34.2 % (37.0-47.0); Hemoglobin 11.3 g/dL (12.0-16.0); Mean Corpuscular Hgb 28.3 pg (27.0-31.0); Mean Corpuscular Volume 85.7 fL (81.0-99.0); Mean Platelet Volume 8.8 fL (7.4-10.4); Platelet Count 268 10^3/uL (130-400); Potassium 3.4 mmol/L (3.5-5.1); Red Blood Cell Count 3.99 10^6/uL (4.20-5.40); Red Cell Dist. Width 12.5 % (11.5-14.5); Sodium 140 mmol/L (135-145); White Blood Cell Count 8.7 10^3/uL (4.8-10.8); eGFR > 60.00
--- NOTE | 2024-11-09 13:32 | W.PN.HOSP.TC ---
Today's Communication/Plan
-
Assessment / Plan
Assessment / Plan
NAD
Scleral Anicteric
MMM
No JVD
CTABL
RRR, S1/S2
Soft, NT, distended, hypoactive bowel
Warm, Dry
Calm
Small bowel obstruction secondary to 2 suspected adhesions from previous cecal volvulus requiring resection
-Colorectal surgery consulted, plan for small bowel through on Sunday
-Maintain NGT L-I wall suction
-IV fluids
-Antiemetics
-Avoid narcotics
-If develops worsening distention abdominal pain nausea vomiting will likely require NG tube
Toxic metabolic encephalopathy recently diagnosed with flu not treated though UTI on cefdinir did not complete course but completed more than 3 days
-Holding memantine
-Fluid resuscitation
-Obtain UA with urine culture
Elevated lipase
-Likely related to bowel obstruction nausea vomiting
-Unlikely secondary to acute pancreatitis as CT abdomen pelvis does not demonstrate pancreatic inflammation and pain is not consistent with acute pancreatitis
Anticipated Discharge: Within 24 hours
Subjective/Interval History
-
Date of Service: November 09, 2024
seen and examiend
no new comaplonts
no acute ovenirhgt events
Objective Data
-
Labs:
Laboratory Results
11/09/24
09:32
WBC 8.7
Hgb 11.3 L
Hct 34.2 L
Plt Count 268 D
Sodium 140
Potassium 3.4 L
Chloride 99
Carbon Dioxide 40 H
BUN 19 H
Creatinine 0.7
Glucose 125 H
Calcium 9.5
Vital Signs:
Vital Signs
Temp Pulse Resp BP Pulse Ox
98.1 F 69 16 120/66 95
11/09/24 07:00 11/09/24 07:00 11/09/24 07:00 11/09/24 07:00 11/09/24 07:00
I&O
11/08/24 11/09/24 11/10/24
06:59 06:59 06:59
Intake Total 480 / 480 1969 / 1969
Output Total 1300 / 1300
Balance 480 / 480 670 / 670
--- NOTE | 2024-11-09 14:06 | W.PN.GS2 ---
Addendum entered and electronically signed by Sandro Strange MD 11/09/24 16:19:
I saw and examined the patient independently.
The resident's documentation was reviewed and I agree with the note, assessment and plan except where noted below.
Comment:
Will plan for small bowel follow-through tomorrow morning.
NG-tube to low intermittent wall suction okay to clamp when patient is mobilizing.
N.p.o., IV fluids
Original Note:
Today's Communication / Plan
-
-Small bowel follow-through tomorrow AM
-Out of bed to ambulate
-Continue NG tube to low intermittent suction, can clamp when out of bed
-Maintain n.p.o. status
-Maintain IV fluids
-Pain control: Tylenol and Toradol as needed
-Antiemetics: Zofran as needed.
-On Lovenox for DVT prophylaxis
-Urine and blood cultures are pending
-No plan for surgery today, will decompress with NG tube and follow small bowel follow-through in AM.
-Discussed plan with at bedside.
Assessment / Plan
-
79-year-old female with a prior medical history of a sigmoid volvulus in 2018 with subsequent small bowel obstruction due to adhesion in 2019 and recent influenza and UTI, presents complaining of abdominal pain, lethargy, vomiting and distention.
CT shows a small bowel obstruction with transition point in the central pelvis. Continues to be distended on gas, not passing gas.
Plan:
-Small bowel follow-through tomorrow AM
-Out of bed to ambulate
-Continue NG tube to low intermittent suction, can clamp when out of bed
-Maintain n.p.o. status
-Maintain IV fluids
-Pain control: Tylenol and Toradol as needed
-Antiemetics: Zofran as needed.
-On Lovenox for DVT prophylaxis
-Urine and blood cultures are pending
-No plan for surgery today, will decompress with NG tube and follow small bowel follow-through in AM.
-Discussed plan with at bedside.
-General surgery will continue to follow
Time Spent
Total Time Spent with Patient (in minutes): 15
Subjective Data
-
No acute events overnight
More awake, alert compared to yesterday
Not passing gas, still complains of distension
Date of Service: November 09, 2024
Objective Data
-
Intake and Output
11/08/24 11/09/24 11/10/24
06:59 06:59 06:59
Intake Total 480 / 480 1970 / 1970
Output Total 1300 / 1300
Balance 480 / 480 670 / 670
Intake:
IV fluids (Total) 480 / 480 1820 / 1820
Amount instilled into GI Tube ( 150 / 150
Total)
[place] Sump 150 / 150
Output:
Emesis 400 / 400
Gastrointestinal tube output ( 700 / 700
Total)
[place] Sump 700 / 700
Urine, Voided 200 / 200
Other:
Number of approximated SMALL 2
amounts of urine
Number of approximated MODERATE 2
amounts of urine
Vital Signs
Temp Pulse Resp BP Pulse Ox
98.1 F 69 16 120/66 95
11/09/24 07:00 11/09/24 07:00 11/09/24 07:00 11/09/24 07:00 11/09/24 07:00
Lab Results
11/09/24 09:32
11/09/24 09:32
Calcium 9.5 mg/dl (8.4-10.2) 11/09/24 09:32
Total Bilirubin 0.8 mg/dl (0.2-1.3) 11/08/24 06:07
Direct Bilirubin 0.4 mg/dl (0.0-0.4) 11/08/24 06:07
AST 74 U/L (14-36) H 11/08/24 06:07
ALT 120 U/L (0-35) H 11/08/24 06:07
Alkaline Phosphatase 87 U/L (38-126) 11/08/24 06:07
Total Protein 6.1 g/dl (6.3-8.2) L 11/08/24 06:07
Albumin 3.7 g/dl (3.5-5.0) 11/08/24 06:07
Physical Exam
-
General: Well Developed, Well Nourished and No Apparent Distress
GI: Non Tender, continues to be distended, Midline incision noted, well-healed
Skin: Warm and Dry
Neuro: Awake and Alert
[2024-11-09 16:00] VITALS: BP 125/49
[2024-11-09] MEDS: LOVENOX 30 MG SC (17:33)
[2024-11-09 23:30] VITALS: BP 129/66
[2024-11-10] MEDS: NSS (PRESERVATIVE FREE) 0.25 ML IV (03:33)
[2024-11-10] MEDS: ATIVAN 0.5 MG IV (03:34)
--- NOTE | 2024-11-10 04:09 | PTCARENOTE ---
Addendum entered by Amrita Bhakta RN 11/10/24 06:09:
Portable x ray taken to verify placement. Awaiting report from xray to verify placement before continuing with flushes. 4 am flush not performed due to to pending placement verification.
Original Note:
Patient removed NG tube from nare. WATER/WASTEWATER PROJECT ENGINEER made aware. 1 time dose Ativan given. Size 16 [place] Sump reinserted in right nare to the 55 cm marking and fasten to tip of nose. Placement verified through accusation. Awaiting X RAY to verify placement
before giving flushes.
[2024-11-10] MEDS: D5LR 1000 IV (07:20)
[2024-11-10 07:28] VITALS: BP 135/69
[2024-11-10 09:55] LABS: Hematocrit 33.8 % (37.0-47.0); Hemoglobin 10.9 g/dL (12.0-16.0); Mean Corp Hgb Conc. 32.2 g/dL (33.0-37.0); Mean Corpuscular Hgb 28.6 pg (27.0-31.0); Mean Corpuscular Volume 88.7 fL (81.0-99.0); Mean Platelet Volume 8.7 fL (7.4-10.4); Platelet Count 253 10^3/uL (130-400); Red Blood Cell Count 3.81 10^6/uL (4.20-5.40); Red Cell Dist. Width 12.3 % (11.5-14.5); White Blood Cell Count 7.5 10^3/uL (4.8-10.8)
[2024-11-10 10:11] LABS: Blood Urea Nitrogen 15 mg/dl (7-17); Calcium 9.2 mg/dl (8.4-10.2); Carbon Dioxide 38 mmol/L (22-30); Chloride 100 mmol/L (98-107); Estimated Creatinine Clearance 55 ml/min; Glucose 123 mg/dl (70-99); Potassium 3.3 mmol/L (3.5-5.1); Sodium 141 mmol/L (135-145); eGFR > 60.00
--- NOTE | 2024-11-10 11:25 | W.PN.HOSP.TC ---
Today's Communication/Plan
-
F/U SBFT study
IVF
replete K
F/U EKG, start zyprexa qhs if QTc OK
Assessment / Plan
Assessment / Plan
Small bowel obstruction secondary to 2 suspected adhesions from previous cecal volvulus requiring resection
-Colorectal surgery consulted, plan for small bowel through today
-Maintain NGT L-I wall suction
-IV fluids
-Antiemetics
-Avoid narcotics
Toxic metabolic encephalopathy
Hx Dementia
-Holding memantine
- s/p ativan; more confused this morning
-avoid further ativan
-F/U EKG - if QTc OK then start standing qhs zyprexa
Elevated lipase
-Likely related to bowel obstruction nausea vomiting
-Unlikely secondary to acute pancreatitis as CT abdomen pelvis does not demonstrate pancreatic inflammation and pain is not consistent with acute pancreatitis
Anticipated Discharge: > 48 hours
Subjective/Interval History
-
Date of Service: November 10, 2024
confused
Objective Data
-
Labs:
Laboratory Results
11/10/24
09:43
WBC 7.5
Hgb 10.9 L
Hct 33.8 L
Plt Count 253
Sodium 141
Potassium 3.3 L
Chloride 100
Carbon Dioxide 38 H
BUN 15
Creatinine 0.6
Glucose 123 H
Calcium 9.2
Vital Signs:
Vital Signs
Temp Pulse Resp BP Pulse Ox
98.2 F 69 18 135/69 93
11/10/24 07:28 11/10/24 07:28 11/10/24 07:28 11/10/24 07:28 11/10/24 07:28
I&O
11/09/24 11/10/24 11/11/24
06:59 06:59 06:59
Intake Total 1969 / 1969 1964 / 1964
Output Total 1300 / 1300 440 / 440
Balance 670 / 670 1525 / 1525
Review of Systems
-
History Source: Patient
All other systems: Reviewed and negative
Physical Exam
-
General: No Apparent Distress
HEENT: PERRLA and Other (NGT in place )
Respiratory: Clear to Auscultation; Negative Wheezes
Cardiac: Regular Rhythm and S1/S2
GI: Soft and Nontender
Musculoskeletal: No Edema
Skin: Warm and Dry; Negative Rash
Neuro: Awake and Alert; Negative Oriented
Psych: Confused
Data Reviewed
-
Diagnostic Radiology: Report Reviewed by me
Labs: Labs Reviewed by me
[2024-11-10 13:21] LABS: Magnesium 2.1 mg/dl (1.6-2.3)
[2024-11-10] MEDS: KCL 270 MEQ IV (13:29)
--- NOTE | 2024-11-10 14:31 | CM ---
Chart reviewed, family at bedside and case management social worker will follow for discharge planning needs.
Plan; Home with family
[2024-11-10 15:20] VITALS: BP 130/60
[2024-11-10] MEDS: SEROQUEL 12.5 MG PO (18:46)
[2024-11-10] MEDS: LOVENOX 30 MG SC (18:46)
--- NOTE | 2024-11-10 20:41 | W.PN.GS2 ---
Today's Communication / Plan
-
Small bowel follow-through in the a.m.
Assessment / Plan
-
79-year-old female with a prior medical history of a sigmoid volvulus in 2018 with subsequent small bowel obstruction due to adhesion in 2019 and recent influenza and UTI, presents complaining of abdominal pain, lethargy, vomiting and distention.
CT shows a small bowel obstruction with transition point in the central pelvis. Continues to be distended on exam, not passing gas.
Plan:
-Small bowel follow-through tomorrow AM
-Out of bed to ambulate
-Continue NG tube to low intermittent suction, can clamp when out of bed
-Maintain n.p.o. status
-Maintain IV fluids
-Pain control: Tylenol and Toradol as needed
-Antiemetics: Zofran as needed.
-On Lovenox for DVT prophylaxis
-Urine and blood cultures are pending
-No plan for surgery today
-Discussed plan with at bedside.
-General surgery will continue to follow
Time Spent
Total Time Spent with Patient (in minutes): 20
Subjective Data
-
Date of Service: November 10, 2024
Interval Events:
No acute events overnight. Slept well. Pain Controlled. Denies Nausea/Vomiting, -bowel function.
Objective Data
-
Intake and Output
11/09/24 11/10/24 11/11/24
06:59 06:59 06:59
Intake Total 1970 / 1970 1965 / 1965
Output Total 1300 / 1300 440 / 440 500 / 500
Balance 670 / 670 1525 / 1525 -500 / -500
Intake:
IV fluids (Total) 1820 / 1820 1680 / 1680
Amount instilled into GI Tube ( 150 / 150 285 / 285
Total)
[place] Sump 150 / 150 285 / 285
Output:
Emesis 400 / 400
Gastrointestinal tube output ( 700 / 700 440 / 440 500 / 500
Total)
[place] Sump 700 / 700 440 / 440 500 / 500
Urine, Voided 200 / 200
Other:
Number of approximated SMALL 2
amounts of urine
Number of approximated MODERATE 1 3
amounts of urine
Vital Signs
Temp Pulse Resp BP Pulse Ox
98.3 F 56 16 130/60 99
11/10/24 15:20 11/10/24 15:20 11/10/24 15:20 11/10/24 15:20 11/10/24 15:20
Lab Results
11/10/24 09:43
11/10/24 09:43
Calcium 9.2 mg/dl (8.4-10.2) 11/10/24 09:43
Magnesium 2.1 mg/dl (1.6-2.3) 11/10/24 09:43
Total Bilirubin 0.8 mg/dl (0.2-1.3) 11/08/24 06:07
Direct Bilirubin 0.4 mg/dl (0.0-0.4) 11/08/24 06:07
AST 74 U/L (14-36) H 11/08/24 06:07
ALT 120 U/L (0-35) H 11/08/24 06:07
Alkaline Phosphatase 87 U/L (38-126) 11/08/24 06:07
Total Protein 6.1 g/dl (6.3-8.2) L 11/08/24 06:07
Albumin 3.7 g/dl (3.5-5.0) 11/08/24 06:07
Physical Exam
-
GENERAL/NEURO: Confused but in no distress
CHEST: Unlabored breathing on RA
ABDOMEN: Soft, Non-Tender, mildly distended. NG with bilious output
Patient has a stephens catheter: No
Patient has a central line: No
[2024-11-10 23:00] VITALS: BP 159/78
[2024-11-11] MEDS: D5LR 1000 IV ×3 (01:34→17:09)
[2024-11-11 07:30] VITALS: BP 118/51
[2024-11-11 08:59] LABS: Hematocrit 32.3 % (37.0-47.0); Hemoglobin 10.5 g/dL (12.0-16.0); Mean Corp Hgb Conc. 32.5 g/dL (33.0-37.0); Mean Corpuscular Hgb 28.2 pg (27.0-31.0); Mean Corpuscular Volume 86.6 fL (81.0-99.0); Mean Platelet Volume 9.1 fL (7.4-10.4); Platelet Count 255 10^3/uL (130-400); Red Blood Cell Count 3.73 10^6/uL (4.20-5.40); Red Cell Dist. Width 12.3 % (11.5-14.5); White Blood Cell Count 6.9 10^3/uL (4.8-10.8)
[2024-11-11 09:40] LABS: Blood Urea Nitrogen 13 mg/dl (7-17); Calcium 8.9 mg/dl (8.4-10.2); Carbon Dioxide 33 mmol/L (22-30); Chloride 106 mmol/L (98-107); Estimated Creatinine Clearance 55 ml/min; Glucose 98 mg/dl (70-99); Potassium 3.8 mmol/L (3.5-5.1); Sodium 143 mmol/L (135-145); eGFR > 60.00
--- NOTE | 2024-11-11 10:23 | PN.CDI ---
CDI
- -
CDI:
Physician Documentation Request
Admit Date: 11/07/24 22:29
Dear Doctor Margie,
Please review the following and provide your response in the progress notes.
Clinical Indicators:
Height: 5'
Weight: 99 lbs
BMI: 19.4
If possible, please provide an associated diagnosis related to the abnormal BMI, such as:
Underweight
Cachectic
BMI is not significant
Other
BMI < or = to 19.9
Underweight
Weight Loss
Cachectic
Anorexia
Use of terms such as suspected, likely, concern for, or probable (associated with a specific diagnosis that is being evaluated, monitored, or treated as if it exists) are acceptable and can be coded in the inpatient setting, when documented at the
time of discharge.
Thank you,
Carola Potter RN, BSN
CDI Specialist
Available via [employer] text
Please use your independent medical judgment in providing your response.
--- NOTE | 2024-11-11 10:29 | PN.CDI ---
CDI
- -
CDI:
Physician Documentation Request
Admit Date: 11/07/24 22:29
Dear Doctor Margie,
Patient admitted for SBO.
11/10 Hospitalist PN: 'replete K'
11/10 Potassium level: 3.3
11/10 Potassium Chloride 40 meq in sodium chloride administered
Based on the above, could you clarify in the progress notes, the appropriate diagnosis, if significant, that supports the above abnormalities and additional evaluation, monitoring and/or treatment rendered:
Hypokalemia
Abnormal lab value insignificant
Other
Use of terms such as suspected, likely, concern for, or probable (associated with a specific diagnosis that is being evaluated, monitored, or treated as if it exists) are acceptable and can be coded in the inpatient setting, when documented at the
time of discharge.
Thank you,
Carola Potter RN, BSN
CDI Specialist
Available via [employer] text
Please use your independent medical judgment in providing your response.
[2024-11-11] MEDS: ZOFRAN 4 MG IV (11:54)
--- NOTE | 2024-11-11 11:55 | PTCARENOTE ---
11/11- Patient experiencing vomiting X3. Patient c/o nausea and epigastric pain. Abd soft/Tender in upper quadrants. BS still hypoactive. Skin CDI. She had gone to the bathroom, with parameters that are ok to disconnect temporarily from suction.
Upon coming back to bed from bathroom, reconnected suction to Low Intermittent. Still draining brown/green drainage. Administered Zofran as ordered. Continue to monitor.
--- NOTE | 2024-11-11 12:06 | W.PN.HOSP.TC ---
Today's Communication/Plan
-
see plan
Assessment / Plan
Assessment / Plan
Small bowel obstruction secondary to 2 suspected adhesions from previous cecal volvulus requiring resection
-Surgery consulted,s/p small bowel through today
-Maintain NGT L-I wall suction
-IV fluids
-Antiemetics
-F/U further surgery recommendations
Toxic metabolic encephalopathy
Hx Dementia
-Holding memantine
- s/p ativan; more confused this morning
-avoid further ativan
-increase standing Seroquel
Elevated lipase
-Likely related to bowel obstruction nausea vomiting
-Unlikely secondary to acute pancreatitis as CT abdomen pelvis does not demonstrate pancreatic inflammation and pain is not consistent with acute pancreatitis
DVT Ppx Lovenox subQ
FULL CODE
Anticipated Discharge: > 48 hours
Subjective/Interval History
-
Date of Service: November 11, 2024
vomited once NGT disconnected briefly
now rehooked to suction, patient appears comfortable
Objective Data
-
Labs:
Laboratory Results
11/11/24
08:29
WBC 6.9
Hgb 10.5 L
Hct 32.3 L
Plt Count 255
Sodium 143
Potassium 3.8
Chloride 106
Carbon Dioxide 33 H
BUN 13
Creatinine 0.6
Glucose 98
Calcium 8.9
Vital Signs:
Vital Signs
Temp Pulse Resp BP Pulse Ox
98.1 F 54 18 118/51 98
11/11/24 07:30 11/11/24 07:30 11/11/24 07:30 11/11/24 07:30 11/11/24 07:30
I&O
11/10/24 11/11/24 11/12/24
06:59 06:59 06:59
Intake Total 1964 / 1964 1060 / 1060
Output Total 440 / 440 800 / 800
Balance 1525 / 1525 260 / 260
Review of Systems
-
History Source: Patient
All other systems: Reviewed and negative
Physical Exam
-
General: No Apparent Distress
HEENT: PERRLA and Other (NGT in place )
Respiratory: Clear to Auscultation; Negative Wheezes
Cardiac: Regular Rhythm and S1/S2
GI: Soft and Nontender
Musculoskeletal: No Edema
Skin: Warm and Dry; Negative Rash
Neuro: Awake and Alert; Negative Oriented
Psych: Confused
Data Reviewed
-
Diagnostic Radiology: Report Reviewed by me
Labs: Labs Reviewed by me
--- NOTE | 2024-11-11 13:12 | CM ---
Chart reviewed patient with NGT able to walk to stretcher. Home when stable.
Plan; Home when stable.
--- NOTE | 2024-11-11 15:36 | W.PN.GS2 ---
Today's Communication / Plan
-
-- SBFT pending
-- NPO, IVF, NGT decompression, would continue with suction given symptoms
-- Tentatively added to OR schedule tomorrow
Assessment / Plan
-
Patient 79 yo F p/w SBO secondary to adhesions
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 Recent influenza and UTI, presents complaining of abdominal pain, lethargy, vomiting and distention.
CT shows a small bowel obstruction with transition point in the central pelvis.
No clinical or radiographic concern for bowel ischemia or perforation
SBFT with continued SB distension, no passage of contrast into the colon. Some signs of possible bowel function reported, but not consistent. Repeat X-ray pending.
The natural history and pathophysiology of adhesive SBO's was discussed. Given her persistent symptoms and SBFT findings thus far she has likely going to need operative management. Plans for repeat abdominal x-ray at 4 PM. Repeat x-ray ordered
for the AM. No passage of contrast into the colon and will plan on operative intervention tomorrow. Added to the schedule for laparoscopic possible open lysis of adhesions. The procedure itself, as well as the risks, benefits, and alternatives
was discussed. All questions answered. Patient and family agreeable with plan.
Plan:
-- SBFT pending
-- NPO, IVF, NGT decompression, would continue with suction given symptoms
-- Tentatively added to OR schedule tomorrow
-- Correct lytes, minimize narcotics
Subjective Data
-
Date of Service: November 11, 2024
Feels slightly improved. Continues to have some abdominal discomfort and distention. Did have a nice episode of emesis earlier after returning from her SBFT. Does report passing some looser stool, denies any flatus. Afebrile.
Objective Data
-
Intake and Output
11/10/24 11/11/2425
06:59 06:59 06:59
Intake Total 1964 / 1964 1060 / 1060
Output Total 440 / 440 800 / 800
Balance 1525 / 1525 260 / 260
Intake:
IV fluids (Total) 1680 / 1680 1000 / 1000
Amount instilled into GI Tube ( 285 / 285 60 / 60
Total)
[place] Sump 285 / 285 60 / 60
Output:
Gastrointestinal tube output ( 440 / 440 800 / 800
Total)
[place] Sump 440 / 440 800 / 800
Other:
Number of approximated MODERATE 1 3
amounts of urine
How many times incontinent 2
MODERATE amount urine
Vital Signs
Temp Pulse Resp BP Pulse Ox
98.1 F 54 18 118/51 98
11/11/24 07:30 11/11/24 07:30 11/11/24 07:30 11/11/24 07:30 11/11/24 07:30
Lab Results
11/11/24 08:29
11/11/24 08:29
Calcium 8.9 mg/dl (8.4-10.2) 11/11/24 08:29
Magnesium 2.1 mg/dl (1.6-2.3) 11/10/24 09:43
Total Bilirubin 0.8 mg/dl (0.2-1.3) 11/08/24 06:07
Direct Bilirubin 0.4 mg/dl (0.0-0.4) 11/08/24 06:07
AST 74 U/L (14-36) H 11/08/24 06:07
ALT 120 U/L (0-35) H 11/08/24 06:07
Alkaline Phosphatase 87 U/L (38-126) 11/08/24 06:07
Total Protein 6.1 g/dl (6.3-8.2) L 11/08/24 06:07
Albumin 3.7 g/dl (3.5-5.0) 11/08/24 06:07
Physical Exam
-
Gen: NAD
HEENT: bilious output
Abd: soft, mild tenderness, mild/moderate distension, non-peritoneal, prior midline adhesion well healed
Patient has a stephens catheter: No
Patient has a central line: No
[2024-11-11 15:55] VITALS: BP 141/65
[2024-11-11] MEDS: LOVENOX 30 MG SC (17:10)
[2024-11-11] MEDS: SEROQUEL 25 MG PO (20:33)
[2024-11-11 23:36] VITALS: BP 135/60
--- NOTE | 2024-11-12 02:50 | DOWNTIME ---
There was a [employer] Downtime on 11/12/2024 from 0100 to 11/12/2023 at 0235 . Downtime documentation of patient's care, including medication administrations, has been reconciled in the electronic record per guidelines. Refer to the
patient's paper chart under the miscellaneous tab to see printed paper medication records and downtime forms.
[2024-11-12] MEDS: D5LR 1000 IV (05:27)
[2024-11-12 07:24] VITALS: BP 141/65
[2024-11-12 07:58] LABS: Hematocrit 32.2 % (37.0-47.0); Hemoglobin 10.3 g/dL (12.0-16.0); Mean Corpuscular Hgb 28.6 pg (27.0-31.0); Mean Corpuscular Volume 89.4 fL (81.0-99.0); Mean Platelet Volume 9.3 fL (7.4-10.4); Platelet Count 248 10^3/uL (130-400); Red Cell Dist. Width 12.3 % (11.5-14.5); White Blood Cell Count 6.5 10^3/uL (4.8-10.8)
[2024-11-12 08:53] LABS: Blood Urea Nitrogen 15 mg/dl (7-17); Carbon Dioxide 36 mmol/L (22-30); Chloride 104 mmol/L (98-107); Estimated Creatinine Clearance 41 ml/min; Glucose 121 mg/dl (70-99); Potassium 3.5 mmol/L (3.5-5.1); Sodium 146 mmol/L (135-145); eGFR > 60.00
--- NOTE | 2024-11-12 10:28 | W.PN.HOSP.TC ---
Today's Communication/Plan
-
see plan
Assessment / Plan
Assessment / Plan
Small bowel obstruction secondary to 2 suspected adhesions from previous cecal volvulus requiring resection
-Surgery consulted, s/p small bowel follow through with obstruction - repeat x-ray today with resolution
-appreciate GS, follow up further recommendations
-Maintain NGT L-I wall suction
-IV fluids - change to 1/2 NS given very mild hypernatremia
-Antiemetics
Toxic metabolic encephalopathy
Hx Dementia
-Holding memantine
-
-avoid further ativan
-increase standing Seroquel
DVT Ppx Lovenox subQ
FULL CODE
Anticipated Discharge: 24 - 48 hours
Subjective/Interval History
-
Date of Service: November 12, 2024
remains with NGT, feeling OK
had a more restful night
Objective Data
-
Labs:
Laboratory Results
11/12/24
07:28
WBC 6.5
Hgb 10.3 L
Hct 32.2 L
Plt Count 248
Sodium 146 H
Potassium 3.5
Chloride 104
Carbon Dioxide 36 H
BUN 15
Creatinine 0.8
Glucose 121 H
Calcium 9.0
Vital Signs:
Vital Signs
Temp Pulse Resp BP Pulse Ox
98.2 F 58 18 141/65 98
11/12/24 07:24 11/12/24 07:24 11/12/24 07:24 11/12/24 07:24 11/12/24 07:24
I&O
11/11/24 11/12/24 11/13/24
06:59 06:59 06:59
Intake Total 1060 / 1060 970 / 970
Output Total 800 / 800 1180 / 1180
Balance 260 / 260 -210 / -210
Review of Systems
-
Unable to obtain full review of systems at this time due to: Dementia
History Source: Patient
All other systems: Reviewed and negative
Physical Exam
-
General: No Apparent Distress
HEENT: PERRLA and Other (NGT in place )
Respiratory: Clear to Auscultation; Negative Wheezes
Cardiac: Regular Rhythm and S1/S2
GI: Soft and Nontender
Musculoskeletal: No Edema
Skin: Warm and Dry; Negative Rash
Neuro: Awake and Alert; Negative Oriented
Psych: Confused
Data Reviewed
-
Diagnostic Radiology: Report Reviewed by me
Labs: Labs Reviewed by me
--- NOTE | 2024-11-12 11:30 | W.PN.GS2 ---
Today's Communication / Plan
-
-- Holding on surgical intervention given improvement, continue with medical management for SBO
-- NPO, IVF,. NGT to suction
-- Repeat abdominal X-ray ordered for tomorrow AM
Assessment / Plan
-
Patient 79 yo F p/w SBO secondary to adhesions
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 Recent influenza and UTI, presents complaining of abdominal pain, lethargy, vomiting and distention.
CT shows a small bowel obstruction with transition point in the central pelvis.
No clinical or radiographic concern for bowel ischemia or perforation
SBFT with continued SB distension, no passage of contrast into the colon. Some signs of possible bowel function reported, but not consistent. Repeat X-ray on 11/12 AM demonstrates contrast into the colon with little remaining SB dilation.
Radiographic improvement and some signs of clinical improvement with passage of small amounts of liquid stool yesterday and gastric output NGT canister this AM. Options for management were again reviewed. Offered surgical management, however,
given her prior surgical history there is a chance this may involve a repeat laparotomy. We discussed that medical management is more likely to succeed based on the most recent available imaging, however, there is a chance of recurrent symptoms.
Given her age, risks for repeat laparotomy, and signs of clinical improvement over the past 12 since her SBFT patient and family would like to follow a watchful waiting approach. All questions answered.
Plan:
-- Holding on surgical intervention given improvement, continue with medical management for SBO
-- NPO, IVF,. NGT to suction
-- Repeat abdominal X-ray ordered for tomorrow AM
-- Correct lytes, minimize narcotics
Subjective Data
-
Date of Service: November 12, 2024
No complaints denies worsening pain. No nausea or emesis. No further flatus or BM.
Objective Data
-
Intake and Output
11/11/24 11/12/24 11/13/24
06:59 06:59 06:59
Intake Total 1060 / 1060 970 / 970
Output Total 800 / 800 1180 / 1180
Balance 260 / 260 -210 / -210
Intake:
Oral fluids 0 / 0
IV fluids (Total) 1000 / 1000 880 / 880
Amount instilled into GI Tube ( 60 / 60 90 / 90
Total)
[place] Sump 60 / 60 90 / 90
Output:
Gastrointestinal tube output ( 800 / 800 1180 / 1180
Total)
[place] Sump 800 / 800 1180 / 1180
Other:
Number of approximated MODERATE 3 1
amounts of urine
How many times incontinent 2
MODERATE amount urine
Number of immeasurable emeses? 10
Vital Signs
Temp Pulse Resp BP Pulse Ox
98.2 F 58 18 141/65 98
11/12/24 07:24 11/12/24 07:24 11/12/24 07:24 11/12/24 07:24 11/12/24 07:24
Lab Results
11/12/24 07:28
11/12/24 07:28
Calcium 9.0 mg/dl (8.4-10.2) 11/12/24 07:28
Magnesium 2.1 mg/dl (1.6-2.3) 11/10/24 09:43
Total Bilirubin 0.8 mg/dl (0.2-1.3) 11/08/24 06:07
Direct Bilirubin 0.4 mg/dl (0.0-0.4) 11/08/24 06:07
AST 74 U/L (14-36) H 11/08/24 06:07
ALT 120 U/L (0-35) H 11/08/24 06:07
Alkaline Phosphatase 87 U/L (38-126) 11/08/24 06:07
Total Protein 6.1 g/dl (6.3-8.2) L 11/08/24 06:07
Albumin 3.7 g/dl (3.5-5.0) 11/08/24 06:07
Physical Exam
-
Gen: NAD, improved energy
HEENT: gastric outputs
Abd: soft, NT, less distended, no tympany, non-peritoneal
Patient has a stephens catheter: No
Patient has a central line: No
[2024-11-12] MEDS: D5/0.45%NSS with KCL 20 MEQ 1000 IV (12:45)
[2024-11-12 15:36] VITALS: BP 126/57
[2024-11-12] MEDS: LOVENOX SC (17:32)
[2024-11-12] MEDS: SEROQUEL 25 MG PO (19:41)
[2024-11-12 23:17] VITALS: BP 136/60
[2024-11-13] MEDS: D5/0.45%NSS with KCL 20 MEQ 1000 IV (04:08)
[2024-11-13 07:41] LABS: Hematocrit 31.7 % (37.0-47.0); Hemoglobin 10.1 g/dL (12.0-16.0); Mean Corp Hgb Conc. 31.9 g/dL (33.0-37.0); Mean Corpuscular Hgb 28.1 pg (27.0-31.0); Mean Corpuscular Volume 88.1 fL (81.0-99.0); Mean Platelet Volume 9.4 fL (7.4-10.4); Platelet Count 250 10^3/uL (130-400); Red Cell Dist. Width 12.3 % (11.5-14.5); White Blood Cell Count 7.6 10^3/uL (4.8-10.8)
[2024-11-13 07:47] VITALS: BP 132/56
[2024-11-13 08:02] LABS: Blood Urea Nitrogen 12 mg/dl (7-17); Calcium 8.6 mg/dl (8.4-10.2); Carbon Dioxide 33 mmol/L (22-30); Chloride 106 mmol/L (98-107); Estimated Creatinine Clearance 47 ml/min; Glucose 106 mg/dl (70-99); Potassium 3.5 mmol/L (3.5-5.1); Sodium 140 mmol/L (135-145); eGFR > 60.00
[2024-11-13] MEDS: PROTONIX IV 40 MG IV (08:40)
[2024-11-13] MEDS: NSS (PRESERVATIVE FREE) 10 ML IV (08:41)
--- NOTE | 2024-11-13 09:53 | W.PN.HOSP.TC ---
Today's Communication/Plan
-
NGT clamping trial
clears
appreciate GS
Assessment / Plan
Assessment / Plan
Small bowel obstruction secondary to 2 suspected adhesions from previous cecal volvulus requiring resection
-Surgery consulted, s/p small bowel follow through 11/11 with obstruction - repeat x-ray morning 11/12 with resolution
-appreciate GS
-NGT with clamping trial, advanced to clears
-stop fluids
Toxic metabolic encephalopathy
Hx Dementia
-Holding memantine
-
-avoid further ativan
-increase standing Seroquel
Underweight
-appreciate dietary
Hypokalemia
-repleted
DVT Ppx Lovenox subQ
FULL CODE
Anticipated Discharge: 24 - 48 hours
Subjective/Interval History
-
Date of Service: November 13, 2024
feeling better
NGT clamped
no BM yet
Objective Data
-
Labs:
Laboratory Results
11/13/24
06:55
WBC 7.6
Hgb 10.1 L
Hct 31.7 L
Plt Count 250
Sodium 140
Potassium 3.5
Chloride 106
Carbon Dioxide 33 H
BUN 12
Creatinine 0.7
Glucose 106 H
Calcium 8.6
Vital Signs:
Vital Signs
Temp Pulse Resp BP Pulse Ox
98.1 F 58 18 132/56 96
11/13/24 07:47 11/13/24 07:47 11/13/24 07:47 11/13/24 07:47 11/13/24 07:47
I&O
11/12/24 11/13/24 11/14/24
06:59 06:59 06:59
Intake Total 970 / 970 90 / 90
Output Total 1180 / 1180 850 / 850
Balance -210 / -210 -760 / -760
Review of Systems
-
History Source: Patient
All other systems: Reviewed and negative
Physical Exam
-
General: No Apparent Distress
HEENT: PERRLA and Other (NGT in place )
Respiratory: Clear to Auscultation; Negative Wheezes
Cardiac: Regular Rhythm and S1/S2
GI: Soft and Nontender
Musculoskeletal: No Edema
Skin: Warm and Dry; Negative Rash
Neuro: Awake and Alert; Negative Oriented
Psych: Confused
Data Reviewed
-
Diagnostic Radiology: Report Reviewed by me
Labs: Labs Reviewed by me
--- NOTE | 2024-11-13 10:38 | W.PN.GS2 ---
Today's Communication / Plan
-
`
Assessment / Plan
-
Assessment: 79 yo F p/w SBO secondary to adhesions
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 Recent influenza and UTI,
CT shows a small bowel obstruction with transition point in the central pelvis.
No clinical or radiographic concern for bowel ischemia or perforation
SBFT with continued SB distension, no passage of contrast into the colon. Some signs of possible bowel function reported, but not consistent. Repeat X-ray on 11/12 AM demonstrates contrast into the colon with little remaining SB dilation.
Continued clinical improvement with returning GI function and reducing NG tube outputs but still uncertain if there is a degree of partial obstruction that remains
Plan: Clamp NG tube and start on clear liquids. If tolerates probable removal of NG tube in afternoon/evening today
Continue to closely monitor
Discussed with patient and her any other concerns or questions were fully addressed.
Updated nursing regarding surgical treatment plan for the day
Subjective Data
-
Date of Service: November 13, 2024
Patient seen and examined. at bedside with follow-up examination.
Denies abdominal pain, denies nausea
Complains of NG tube but tolerating
Uncertain regarding flatus. Reports no bowel movements that she is aware of but nursing documents a couple BMs..
Objective Data
-
Intake and Output
11/12/24 11/13/24 11/14/24
06:59 06:59 06:59
Intake Total 970 / 970 90 / 90
Output Total 1180 / 1180 850 / 850
Balance -210 / -210 -760 / -760
Intake:
Oral fluids 0 / 0
IV fluids (Total) 880 / 880
Amount instilled into GI Tube ( 90 / 90 90 / 90
Total)
[place] Sump 90 / 90 90 / 90
Output:
Gastrointestinal tube output ( 1180 / 1180 850 / 850
Total)
[place] Sump 1180 / 1180 850 / 850
Other:
Number of approximated MODERATE 1 1
amounts of urine
Number of immeasurable emeses? 10
Vital Signs
Temp Pulse Resp BP Pulse Ox
98.1 F 58 18 132/56 99
11/13/24 07:47 11/13/24 07:47 11/13/24 07:47 11/13/24 07:47 11/13/24 08:40
Lab Results
11/13/24 06:55
11/13/24 06:55
Calcium 8.6 mg/dl (8.4-10.2) 11/13/24 06:55
Magnesium 2.1 mg/dl (1.6-2.3) 11/10/24 09:43
Total Bilirubin 0.8 mg/dl (0.2-1.3) 11/08/24 06:07
Direct Bilirubin 0.4 mg/dl (0.0-0.4) 11/08/24 06:07
AST 74 U/L (14-36) H 11/08/24 06:07
ALT 120 U/L (0-35) H 11/08/24 06:07
Alkaline Phosphatase 87 U/L (38-126) 11/08/24 06:07
Total Protein 6.1 g/dl (6.3-8.2) L 11/08/24 06:07
Albumin 3.7 g/dl (3.5-5.0) 11/08/24 06:07
Physical Exam
-
NAD AAO
ABD: Soft, nondistended, minimal tenderness. No rebound rigidity or guarding
NG tube in with scant output in canister. Slightly hemorrhagic.
[2024-11-13] MEDS: KCL 260 MEQ IV (10:40)
[2024-11-13] MEDS: LOVENOX SC (10:41)
--- NOTE | 2024-11-13 15:17 | CM ---
Chart reviewed home when stable.
Plan; Home when stable.
[2024-11-13 15:25] VITALS: BP 123/58
[2024-11-13] MEDS: SEROQUEL 25 MG PO (19:24)
[2024-11-13 23:55] VITALS: BP 118/85
[2024-11-14 07:00] VITALS: BP 139/66
[2024-11-14 07:16] LABS: Blood Urea Nitrogen 12 mg/dl (7-17); Calcium 8.5 mg/dl (8.4-10.2); Carbon Dioxide 30 mmol/L (22-30); Chloride 105 mmol/L (98-107); Estimated Creatinine Clearance 47 ml/min; Glucose 88 mg/dl (70-99); Potassium 3.7 mmol/L (3.5-5.1); Sodium 141 mmol/L (135-145); eGFR > 60.00
[2024-11-14] MEDS: PROTONIX IV 40 MG IV (08:13)
[2024-11-14] MEDS: NSS (PRESERVATIVE FREE) 10 ML IV (08:13)
--- NOTE | 2024-11-14 10:29 | W.PN.HOSP.TC ---
Today's Communication/Plan
-
see plan
Assessment / Plan
Assessment / Plan
Small bowel obstruction secondary to 2 suspected adhesions from previous cecal volvulus requiring resection
-Surgery consulted, s/p small bowel follow through 11/11 with obstruction - repeat x-ray morning 11/12 with resolution
-NGT pulled, patient tolerating clears
-appreciate GS consult
Toxic metabolic encephalopathy
Hx Dementia
-Holding memantine
-
-avoid further ativan
-increase standing Seroquel
Underweight
-appreciate dietary
Hypokalemia
-repleted
DVT Ppx Lovenox subQ
FULL CODE
Anticipated Discharge: 24 - 48 hours
Subjective/Interval History
-
Date of Service: November 14, 2024
feeling well
seen drinking tea with her friend at bedside
reports BM yesterday
Objective Data
-
Labs:
Laboratory Results
11/14/24
06:31
Sodium 141
Potassium 3.7
Chloride 105
Carbon Dioxide 30
BUN 12
Creatinine 0.7
Glucose 88
Calcium 8.5
Vital Signs:
Vital Signs
Temp Pulse Resp BP Pulse Ox
97.7 F 65 18 139/66 96
11/14/24 07:00 11/14/24 07:00 11/14/24 07:00 11/14/24 07:00 11/14/24 07:00
I&O
11/13/24 11/14/24 11/15/24
06:59 06:59 06:59
Intake Total 90 / 90 360 / 360
Output Total 850 / 850
Balance -760 / -760 360 / 360
Review of Systems
-
History Source: Patient
All other systems: Reviewed and negative
Physical Exam
-
General: No Apparent Distress and Conversant
HEENT: PERRLA
Respiratory: Clear to Auscultation; Negative Wheezes
Cardiac: Regular Rhythm and S1/S2
GI: Soft and Nontender
Musculoskeletal: No Edema
Skin: Warm and Dry; Negative Rash
Neuro: Awake and Alert; Negative Oriented
Psych: Confused
Data Reviewed
-
Diagnostic Radiology: Report Reviewed by me
Labs: Labs Reviewed by me
--- NOTE | 2024-11-14 12:06 | W.PN.GS2 ---
Today's Communication / Plan
-
Adv to FLD today, LRD tomorrow if no issues
s/o
Assessment / Plan
-
Assessment: 79 yo F p/w SBO secondary to adhesions
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 Recent influenza and UTI,
CT shows a small bowel obstruction with transition point in the central pelvis.
No clinical or radiographic concern for bowel ischemia or perforation
SBFT with continued SB distension, no passage of contrast into the colon. Some signs of possible bowel function reported, but not consistent. Repeat X-ray on 11/12 AM demonstrates contrast into the colon with little remaining SB dilation.
Did well without NGT, passing flaytus and BM, no n/v
Plan: Adv to FLD
Tomorrow if no issues would adv to LRD
OK for DC home when tolerating LRD from surg standpoint
Updated nursing regarding surgical treatment plan for the day
Pls call with ?s
Subjective Data
-
Date of Service: November 14, 2024
AFVSS, feels well since NGT DC'ed, [facility], denies abd pain, passing BM and flatus
Objective Data
-
Intake and Output
11/13/24 11/14/24 11/15/24
06:59 06:59 06:59
Intake Total 90 / 90 360 / 360
Output Total 850 / 850
Balance -760 / -760 360 / 360
Intake:
Oral fluids 360 / 360
Amount instilled into GI Tube ( 90 / 90
Total)
[place] Sump 90 / 90
Output:
Gastrointestinal tube output ( 850 / 850
Total)
[place] Sump 850 / 850
Other:
Number of approximated MODERATE 1 2
amounts of urine
Vital Signs
Temp Pulse Resp BP Pulse Ox
97.7 F 65 18 139/66 96
11/14/24 07:00 11/14/24 07:00 11/14/24 07:00 11/14/24 07:00 11/14/24 07:00
Lab Results
11/13/24 06:55
11/14/24 06:31
Calcium 8.5 mg/dl (8.4-10.2) 11/14/24 06:31
Magnesium 2.0 mg/dl (1.6-2.3) 11/14/24 06:31
Total Bilirubin 0.8 mg/dl (0.2-1.3) 11/08/24 06:07
Direct Bilirubin 0.4 mg/dl (0.0-0.4) 11/08/24 06:07
AST 74 U/L (14-36) H 11/08/24 06:07
ALT 120 U/L (0-35) H 11/08/24 06:07
Alkaline Phosphatase 87 U/L (38-126) 11/08/24 06:07
Total Protein 6.1 g/dl (6.3-8.2) L 11/08/24 06:07
Albumin 3.7 g/dl (3.5-5.0) 11/08/24 06:07
Physical Exam
-
Gen: NAD
Abd: soft, no ttp, mild distention
Patient has a stephens catheter: No
Patient has a central line: No
--- NOTE | 2024-11-14 14:02 | CM ---
Home with spouse when stable.
Plan; Home no needs.
[2024-11-14 15:00] VITALS: BP 120/60
[2024-11-14] MEDS: LOVENOX 30 MG SC (18:03)
[2024-11-14] MEDS: SEROQUEL 25 MG PO (20:40)
[2024-11-14 23:56] VITALS: BP 126/69
[2024-11-15 07:45] VITALS: BP 136/61
[2024-11-15] MEDS: NSS (PRESERVATIVE FREE) 10 ML IV (07:56)
[2024-11-15] MEDS: PROTONIX IV 40 MG IV (07:57)
[2024-11-15 09:54] LABS: Blood Urea Nitrogen 11 mg/dl (7-17); Calcium 8.3 mg/dl (8.4-10.2); Carbon Dioxide 28 mmol/L (22-30); Chloride 107 mmol/L (98-107); Estimated Creatinine Clearance 55 ml/min; Glucose 81 mg/dl (70-99); Potassium 3.8 mmol/L (3.5-5.1); Sodium 139 mmol/L (135-145); eGFR > 60.00
[2024-11-15 13:00] VITALS: BP 131/62
--- NOTE | 2024-11-15 13:01 | W.PN.HOSP.TC ---
Today's Communication/Plan
-
OK for DC today after seen by PT
Assessment / Plan
Assessment / Plan
Small bowel obstruction secondary to 2 suspected adhesions from previous cecal volvulus requiring resection
-Surgery consulted, s/p small bowel follow through 11/11 with obstruction - repeat x-ray morning 11/12 with resolution
-NGT pulled, patient's diet advanced and now tolerating LRD
-appreciate GS consult
Toxic metabolic encephalopathy
Hx Dementia
-Holding memantine
-
-avoid further ativan
- no need for Seroquel at home
Underweight
-appreciate dietary
Hypokalemia
-repleted
DVT Ppx Lovenox subQ
FULL CODE
Anticipated Discharge: Today
Subjective/Interval History
-
Date of Service: November 15, 2024
feeling well
waiting for lunch
took a shower this morning
no lightheadedness or dizziness
Objective Data
-
Labs:
Laboratory Results
11/15/24
07:49
Sodium 139
Potassium 3.8
Chloride 107
Carbon Dioxide 28
BUN 11
Creatinine 0.6
Glucose 81
Calcium 8.3 L
Vital Signs:
Vital Signs
Temp Pulse Resp BP Pulse Ox
97.8 F 71 14 136/61 99
11/15/24 07:45 11/15/24 07:45 11/15/24 07:45 11/15/24 07:45 11/15/24 07:45
I&O
11/14/24 11/15/24 11/16/24
06:59 06:59 06:59
Intake Total 360 / 360 1200 / 1200
Balance 360 / 360 1200 / 1200
Review of Systems
-
History Source: Patient
All other systems: Reviewed and negative
Physical Exam
-
General: No Apparent Distress and Conversant
HEENT: PERRLA
Respiratory: Clear to Auscultation; Negative Wheezes
Cardiac: Regular Rhythm and S1/S2
GI: Soft and Nontender
Musculoskeletal: No Edema
Skin: Warm and Dry; Negative Rash
Neuro: Awake and Alert; Negative Oriented
Psych: Confused
Data Reviewed
-
Diagnostic Radiology: Report Reviewed by me
Labs: Labs Reviewed by me
--- NOTE | 2024-11-15 13:04 | W.DS.TRANS ---
DC Summary - Order Schedule Clerk
-
Discharge Instructions:
Discharge Diagnosis/Procedures small bowel obstruction
Diet Low Residue
Additional Diets Low residue diet x 1-2 weeks
Activity As tolerated
Driving Restrictions As prior to admission
Bathing Restrictions None
Instructions:
Stand-Alone Forms:
Changes to Home Medications: Yes
Discharge Medications:
DC Medications w/original date entered in [facility]
ibuprofen 200 mg tablet (Advil) 200 mg PO Q6HPRN PRN mild pain 11/07/24
memantine 5 mg tablet 5 mg PO DAILY 11/07/24
risedronate 150 mg tablet 150 mg PO QMONTH 11/07/24
Home Medication Changes
Stop Cefdinir
Pending Results: No
--- NOTE | 2024-11-15 13:22 | CM ---
Addendum entered by Phoebe Zaidi 11/15/24 13:35:
PT order cancelled
Patient will discharge to home; no needs; will provide transport
Original Note:
Met with patient and family at bedside
IMM benefit explained; form signed @ 1319
PT assessment pending
Plan: discharge to home today after PT assessment; no needs anticipated
--- NOTE | 2024-11-15 13:51 | PTCARENOTE ---
Assumed care of pt from previous nurse. Pt for dc. Denies pain. Family at bedside. Will cont to monitor.
--- NOTE | 2024-11-15 14:38 | PTCARENOTE ---
Assisted pt to care along with daughter. IV removed, all belongings with pt. paperwork reviewed.
--- NOTE | 2024-11-15 15:49 | W.DCSUMMARY ---
Discharge Summary
Discharge Data
Date of Admission: 11/07/24
Date of Discharge: 11/15/24
-
Pending Results: No
Hospital Course
Discharging Physician : Dr. Debi Hanson
Disposition : Home
Primary care physician : Dr. Nory Driver
Principal Discharge diagnosis : small bowel obstruction
Hospital Course :
Ms. Adele Bhardwaj is a 79 yo woman with hx cecal voluvlus status post bowel resection, IBS, constipation, history of breast cancer status post surgery and radiation, presents to the emergency department with worsening abdominal pain.
In the emergency department she was afebrile, blood pressure was 130/70 pulse 98 respiratory rate 20. He was satting 96% on room air. White count was 12 CBC otherwise unremarkable. Electrolytes BUN/creatinine were all within normal range. He had
elevated lipase to 584, mild elevation in ALT and AST.
CT scan of the abdomen and pelvis showed small bowel obstruction with transition suggested in the central pelvis. No evidence of bowel wall thickening or pneumatosis. Minimal ascites noted. No focal collection or abscess. The liver spleen and
kidneys were unremarkable. The gallbladder, bile duct were also unremarkable.
She was admitted to medicine with GS consulting. SBO slow to resolve, SBFT study showed obstruction on 11/11. Follow up x-ray morning of 11/12 showed resolution. Her diet was slowly advanced, NGT pulled. She is tolerating LRD prior to discharge.
She was seen ambulating hallways. She feels ready to go home.
Time spent on discharge was 35 minutes.
Important imaging findings :
Abdomen/Pelvis CT 11/07/24
IMPRESSION:
Small bowel obstruction with transition suggested in the central pelvis. No evidence of bowel wall thickening or pneumatosis. Relatively minimal ascites. No focal collection or abscess.
Small Bowel X-Ray 11/11/24
IMPRESSION: High-grade (if not complete) small bowel obstruction. Uncertain location. Examination terminated after 7 hours 15 minutes. Consider follow-up KUB examination to assess for any delayed distal propagation of the contrast material.
X-Ray 11/12/24
IMPRESSION:
Small bowel obstruction appears to have resolved in the interval since yesterday's examination as contrast from the prior study has passed into the colon and no dilated loops of small bowel are currently demonstrated
Procedure findings :
Discharge Plan
-
Patient Disposition: Home (Routine Discharge)
Discharge Diagnosis/Procedures: small bowel obstruction
Diet: Low Residue
Additional Diets: Low residue diet x 1-2 weeks
Activity: As tolerated
Driving Restrictions: As prior to admission
Bathing Restrictions: None
Instructions: Low-fiber diet, Small bowel obstruction - Discharge instructions
Referrals:
Nory Driver MD [Family Provider] - in less than 1 week
Prescriptions:
Continued
ibuprofen [Advil] 200 mg Tablet
200 mg PO Q6HPRN PRN (Reason: mild pain)
memantine 5 mg Tablet
5 mg PO DAILY
Patient Comments:
11/07/24: instructed to take for 1 week to check reaction, then increase to BID.
risedronate 150 mg Tablet
150 mg PO QMONTH
Discontinued
cefdinir 300 mg capsule
300 mg PO BID Qty: 14 0RF
Discharge Orders:
Discharge Patient (As Directed); Ordered 11/15/24
Ordered By: Debi Hanson
Discharge Date and Time
Discharge Date/Time: 11/15/24 14:21
Print Language: MAORI
== END 2024-11-15 14:21 | disposition home or self-care (01) | DRG 388 ==
LOC: 4 WEST ACU 22:29
PROVIDERS: Emergency Medicine; Hospitalist; Radiology Diagnostic Radiology; ADMITTING PHYSICIAN Internal Medicine; ATTENDING PHYSICIAN Student in an Organized Health Care Education/Training Program; CONSULT PHYSICIAN Surgery; EMERGENCY PHYSICIAN Emergency Medicine; FAMILY PHYSICIAN Family Medicine
PROC: 0D9670Z Drainage of Stomach with Drainage Device, Via Natural or Artificial Opening (ICD-10-PCS; 2024-11-10)
DX: K56.50 Intestinal adhesions [bands], unspecified as to partial versus complete obstruction (principal); G92.8 Other toxic encephalopathy; Z68.1 Body mass index [BMI] 19.9 or less, adult; E87.0 Hyperosmolality and hypernatremia; F03.90 Unspecified dementia, unspecified severity, without behavioral disturbance, psychotic disturbance, mood disturbance, and anxiety; R63.6 Underweight; E87.6 Hypokalemia; Z79.899 Other long term (current) drug therapy; Z92.3 Personal history of irradiation; Z90.49 Acquired absence of other specified parts of digestive tract; Z87.19 Personal history of other diseases of the digestive system; Z85.3 Personal history of malignant neoplasm of breast
CPT/HCPCS: 71045; 74018; 74177; 74250; 80048; 80053; 81003; 81015; 82248; 83605; 83690; 83735; 85025; 85027; 87040; 87086; 93005; 96360; 99285; Q9967